=== PATIENT | male | born 1950 | race Caucasian/White ===

== ENCOUNTER 2017-04-28 16:05 | Inpatient (IN) | payer MEDICARE, OTHER ==
[~2017-04-28] VITALS: Ht 188 cm; Wt 106.5 kg
[~2017-04-28 16:05] MED LIST: ALFU1TAB10 PO; GLUCTAB PO; IBUP-232 PO; LORTA5
[2017-04-28 16:35] VITALS: BP 148/82; PULSE 67; RESP 17; TEMP 97.7; O2SAT 98
[2017-04-28] MEDS ORDERED: SODIUM CHLORIDE 0.9% FLUSH 10 ML FLUSH IVF PRN (16:45)
[2017-04-28 17:01] VITALS: BP 131/69; PULSE 67; RESP 20; O2SAT 96
[2017-04-28 17:02] VITALS: BP 138/71; PULSE 69; RESP 18; O2SAT 96
[2017-04-28] MEDS ORDERED: METF850T PO (17:07)
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
[2017-04-28 17:28] LABS: AUTOMATED NEUTROPHIL # 4.6 TH/MM3 (1.8-7.7); BASOPHIL % 0.5 % (0.0-2.0); EOSINOPHIL # 0.3 TH/MM3 (0-0.4); EOSINOPHIL % 4.3 % (0.0-4.0); HEMATOCRIT 46.5 % (39.0-51.0); HEMO FLAGS DIFF FINAL; LYMPH % 24.5 % (9.0-44.0); LYMPHOCYTE # 1.9 TH/MM3 (1.0-4.8); MEAN CELL VOLUME 91.8 FL (80.0-100.0); MEAN CORPUSCULAR HEMOGLOBIN 31.4 PG (27.0-34.0); MEAN CORPUSCULAR HGB CONC 34.2 % (32.0-36.0); MONO % 9.7 % (0.0-8.0); PLATELET COUNT 179 TH/MM3 (150-450); RED BLOOD COUNT 5.06 MIL/MM3 (4.50-5.90); RED CELL DISTRIBUTION WIDTH 13.8 % (11.6-17.2); WHITE BLOOD COUNT 7.6 TH/MM3 (4.0-11.0)
[2017-04-28 17:31] LABS: APTT (PATIENT) 26.4 SEC (24.3-30.1); PROTHROMBIN TIME - PATIENT 11.4 SEC (9.8-11.6)
[2017-04-28 17:41] LABS: ANION GAP 6 MEQ/L (5-15); BICARBONATE 29.7 MEQ/L (21.0-32.0); BLOOD UREA NITROGEN 20 MG/DL (7-18); CHLORIDE 102 MEQ/L (98-107); GLOMERULAR FILTRATION RATE 54 ML/MIN (>89); MAGNESIUM 2.1 MG/DL (1.5-2.5); POTASSIUM 4.2 MEQ/L (3.5-5.1); SODIUM (NA) 138 MEQ/L (136-145)
[2017-04-28 17:44] LABS: CREATINE KINASE 140 U/L (39-308)
[2017-04-28 18:03] LABS: CKMB 6.6 NG/ML (0.5-3.6)
--- NOTE | 2017-04-28 18:44 | RADRPT ---
EXAM DATE/TIME: 04/28/2017 16:42 [facility] COMPARISON: No previous studies available for comparison. INDICATIONS : Chest pain. MEDICAL HISTORY : None. SURGICAL HISTORY : None. ENCOUNTER: Initial ACUITY: 1 day PAIN SCORE: 10/10 LOCATION: Bilateral chest FINDINGS: A single view of the chest demonstrates the lungs to be symmetrically aerated without evidence of mas s, infiltrate or effusion. Calcified granuloma is evident in the left mid lung. The cardiomediastina l contours are unremarkable. Osseous structures are intact. CONCLUSION: No acute disease. Calcified granuloma left midlung. Paresh Soares MD on April 28, 2017 at 18:42 Board Certified Radiologist. This report was verified electronically.
[2017-04-28] MEDS ORDERED: oxyCODONE/ACETAMINOPHEN 10 MG/325 MG TAB PO PRN (18:45)
[2017-04-28] MEDS ORDERED: NITROGLYCERIN 0.4 MG SL 25 TABS/BTL SL PRN (18:45)
[2017-04-28] MEDS ORDERED: GLUCAGON 1 MG/ML VIAL OTHER PRN (18:45)
[2017-04-28] MEDS ORDERED: ACETAMINOPHEN 325 MG TAB PO PRN (18:45)
[2017-04-28] MEDS ORDERED: ALPRAZolam 0.25 MG TAB PO PRN (18:45)
[2017-04-28] MEDS ORDERED: BISACODYL 10 MG SUPP RECTAL PRN (18:45)
[2017-04-28] MEDS ORDERED: ONDANSETRON HCL 4 MG/2 ML VIAL IV PRN (18:45)
[2017-04-28] MEDS ORDERED: SODIUM CHLORIDE 0.9% FLUSH 10 ML FLUSH IV FLUSH PRN ×2 (18:45)
[2017-04-28] MEDS ORDERED: DOCUSATE SODIUM 100 MG CAP PO PRN (18:45)
[2017-04-28] MEDS ORDERED: DEXTROSE 50% IN WATER 50 ML VIAL(D50) IV PRN (18:45)
[2017-04-28] MEDS ORDERED: PROCHLORPERAZINE 25 MG SUPP RECTAL PRN (18:45)
[2017-04-28] MEDS ORDERED: MAGNESIUM HYDROXIDE SUSP 30 ML CUP PO PRN (18:45)
[2017-04-28] MEDS ORDERED: MORPHINE SULFATE 4 MG/ML INJ IV PRN ×3 (18:45)
[2017-04-28] MEDS ORDERED: LACTULOSE SYRUP 20 GM/30 ML CUP PO PRN (18:45)
[2017-04-28] MEDS ORDERED: SENNOSIDES 8.6 MG TAB PO PRN (18:45)
[2017-04-28] MEDS ORDERED: oxyCODONE/ACETAMINOPHEN 5 MG/325 MG TAB PO PRN (18:45)
[2017-04-28] MEDS ORDERED: ONDANSETRON HCL 4 MG/2 ML VIAL IVP PRN (18:45)
[2017-04-28] MEDS ORDERED: ZOLPIDEM TARTRATE 5 MG TAB PO PRN (18:45)
[2017-04-28] MEDS ORDERED: NALOXONE HCL 0.4 MG/ML AMP IV PRN (18:45)
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
[2017-04-28 19:57] VITALS: BP 141/77; PULSE 54; RESP 14; O2SAT 97
[2017-04-28] MEDS: HEPARIN-D5W 25,000 U/250 ML 250 ML IV SCH (20:02)
[2017-04-28] MEDS: NITROGLYCERIN 2% OINT 1 GM PACKET TOP SCH (20:11)
[2017-04-28 20:32] LABS: MEAN CORPUSCULAR HEMOGLOBIN 31.7 PG (27.0-34.0); MEAN CORPUSCULAR HGB CONC 34.4 % (32.0-36.0); PLATELET COUNT 170 TH/MM3 (150-450); RED BLOOD COUNT 4.89 MIL/MM3 (4.50-5.90); RED CELL DISTRIBUTION WIDTH 13.8 % (11.6-17.2); REVIEW FLAG FINAL; WHITE BLOOD COUNT 8.5 TH/MM3 (4.0-11.0)
[2017-04-28 20:34] LABS: PROTHROMBIN TIME - PATIENT 11.2 SEC (9.8-11.6)
[2017-04-28 20:40] LABS: CREATINE KINASE 184 U/L (39-308)
[2017-04-28] MEDS ORDERED: SODIUM CHLORIDE 0.9% FLUSH 10 ML FLUSH IV FLUSH SCH (21:00)
[2017-04-28] MEDS: SODIUM CHLORIDE 0.9% FLUSH 10 ML FLUSH IV FLUSH SCH (21:00)
[2017-04-28] MEDS: ATORVASTATIN 40 MG TAB PO SCH (21:00)
[2017-04-28] MEDS: METOPROLOL TARTRATE 25 MG TAB PO SCH (21:00)
[2017-04-28] MEDS: DOCUSATE SODIUM 50 MG/SENNA 8.6 MG TAB PO SCH (21:00)
[2017-04-28] MEDS: INSULIN ASPART SUPPLEMENTAL SCALE SQ SCH (21:00)
[2017-04-28 21:08] LABS: CKMB 11.8 NG/ML (0.5-3.6)
[2017-04-29] VITALS (17 sets, daily range): BP systolic 107–133; BP diastolic 64–83; PULSE 49–80; RESP 12–20; TEMP 97.7–98.6; O2SAT 94–98
[2017-04-29 01:32] LABS: CREATINE KINASE 259 U/L (39-308)
[2017-04-29 02:05] LABS: CKMB 24.9 NG/ML (0.5-3.6)
[2017-04-29 02:43] LABS: APTT (PATIENT) 83.9 SEC (24.3-30.1)
[2017-04-29] MEDS: NITROGLYCERIN 2% OINT 1 GM PACKET TOP SCH ×4 (05:12→21:50)
[2017-04-29] MEDS: INSULIN ASPART SUPPLEMENTAL SCALE SQ SCH ×3 (07:00→21:00)
[2017-04-29 08:16] LABS: ANION GAP 7 MEQ/L (5-15); AST (GOT) 65 U/L (15-37); BICARBONATE 28.1 MEQ/L (21.0-32.0); BLOOD UREA NITROGEN 20 MG/DL (7-18); CHLORIDE 103 MEQ/L (98-107); GLOMERULAR FILTRATION RATE 65 ML/MIN (>89); MAGNESIUM 2.1 MG/DL (1.5-2.5); POTASSIUM 4.2 MEQ/L (3.5-5.1); SODIUM (NA) 138 MEQ/L (136-145)
[2017-04-29 08:26] LABS: ALKALINE PHOSPHATASE 49 U/L (45-117); ALT (GPT) 55 U/L (12-78); CREATINE KINASE 274 U/L (39-308); FREE T4 0.91 NG/DL (0.76-1.46); HDL CHOLESTEROL 38.3 MG/DL (40.0-60.0); LDL CHOLESTEROL 75 MG/DL (0-99); TOTAL BILIRUBIN ADULT 1.5 MG/DL (0.2-1.0)
[2017-04-29 08:55] LABS: CKMB 24.1 NG/ML (0.5-3.6)
[2017-04-29] MEDS: DOCUSATE SODIUM 50 MG/SENNA 8.6 MG TAB PO SCH ×2 (09:00→21:00)
[2017-04-29] MEDS: METOPROLOL TARTRATE 25 MG TAB PO SCH ×2 (09:00→21:00)
[2017-04-29] MEDS: SODIUM CHLORIDE 0.9% FLUSH 10 ML FLUSH IV FLUSH SCH ×2 (09:00→21:51)
[2017-04-29] MEDS: ASPIRIN EC 325 MG TABEC PO SCH (09:34)
[2017-04-29 09:43] LABS: APTT (PATIENT) 29.9 SEC (24.3-30.1)
[2017-04-29 10:02] LABS: AUTOMATED NEUTROPHIL # 6.7 TH/MM3 (1.8-7.7); BASOPHIL % 0.4 % (0.0-2.0); EOSINOPHIL # 0.2 TH/MM3 (0-0.4); EOSINOPHIL % 2.3 % (0.0-4.0); HEMATOCRIT 42.7 % (39.0-51.0); HEMO FLAGS DIFF FINAL; LYMPH % 20.2 % (9.0-44.0); MEAN CELL VOLUME 91.6 FL (80.0-100.0); MEAN CORPUSCULAR HEMOGLOBIN 31.9 PG (27.0-34.0); MEAN CORPUSCULAR HGB CONC 34.8 % (32.0-36.0); MONO % 9.1 % (0.0-8.0); PLATELET COUNT 156 TH/MM3 (150-450); RED BLOOD COUNT 4.66 MIL/MM3 (4.50-5.90); RED CELL DISTRIBUTION WIDTH 13.9 % (11.6-17.2); WHITE BLOOD COUNT 9.9 TH/MM3 (4.0-11.0)
[2017-04-29] MEDS ORDERED: NITROGLYCERIN INJ 5 ML ONE (10:12)
[2017-04-29] MEDS ORDERED: HEPARIN-NS/PF INJ 500 ML ONE (10:12)
[2017-04-29] MEDS ORDERED: MIDAZOLAM HCL 2 MG/2 ML VIAL ONE (10:13)
[2017-04-29] MEDS ORDERED: HEPARIN SODIUM - IV 10,000 UNITS/10 ML VIAL ONE (10:13)
[2017-04-29] MEDS ORDERED: ATROPINE SULFATE 1 MG/ML VIAL IV PRN (11:00)
[2017-04-29] MEDS ORDERED: SODIUM CHLOR 0.9% 250 ML INJ 250 ML IV PRN (11:00)
[2017-04-29] MEDS ORDERED: MISC INFORMATION XX ONE ×2 (11:00)
[2017-04-29] MEDS ORDERED: BACITRACIN OINT 0.9 GM PKT TOP ONE (11:00)
[2017-04-29] MEDS ORDERED: LIDOCAINE HCL 1% 50 ML VIAL INFIL PRN (11:00)
--- NOTE | 2017-04-29 11:02 | CATHPROC ---
Occasion HIS Report Study Information Study Number Admission Scheduled Start Study Start [id number] Apr 28 2017 6:17PM 04/29/2017 Apr 29 2017 9:50AM [facility] Service Cardiac Catheterization Admit Source Facility Department Other [facility] - Heel Room Supervisor Physician and Clinical Staff Initial Leighton Ramos [place] Department Supervisor Brinda Hein,BSRN Other cathlab, cathlab Recorder Ladi Khan,INDUSTRIAL LOCOMOTIVE OPERATOR TECH2 Scrub Juve Hart RCIS(BS) Procedures Performed Procedure Location (Site) Vessel Name Angiogram LV LV Ventricle Coronary Angiograms LCA Left Coronary Coronary Angiograms RCA Right Coronary Coronary Angiograms ZAPATA ZAPATA L Heart Cath Wire insertion Fem Art (right) Femoral Art Equipment Time Warehouse Foreman Description Size Mfg Part Number Used/Scraped TRANSDUCER, TRUWAVE [id number] 09:52 MOBLEY METCALF * Used W/STOCKCOCK *[id number] *[id number] [id number] *[id number] [id number] *[id number] [id number] *[id number] [id number] *[id number] 09:52 [employer] PACK, CCL CUSTOM * Used *[id number] 09:52 [employer] SUPPORT, ARTERIAL ADULT [id number] Used [id number] 09:52 Social Pulse PACER PEN, SKIN DUAL W/ RULER * Used *[id number] BAND, RADIAL COMPRESSION TR [id number] 10:42 [employer] 29CM Used LARGE 29 *[id number] SHEATH, FR6 RADIAL PRELUDE 09:52 [employer] FR 6 [id number] Used EASE 11CM [id number] 09:52 [employer] WIRE, EXCHANGE 260CM 3MMJ 260CM Used *[id number] 09:52 [employer] OMNIPAQUE, 350 MG, 150ML 150ML [id number] Used 10:52 [employer] OMNIPAQUE, 350 MG, 50ML 50ML [id number] Used [id number] 09:52 [facility] BLANKET,WARM AIR CCL * Used *[id number] 10:44 [employer] MEDICAL SHEATH, FR5 TERUMO (10CM) FR 5 Used *[id number] History: Current Medications Medication Dosage/Unit Route Frequency Last Date/Time Taken Glucophage History: Allergies Allergy Reaction No Known Allergies History: Risk Factors Family History of Hypertension Dyslipidemia Previous GA Previous Heart Failure Premature CAD Yes No No Yes No Prior Valve Prior PCI Prior CABG Surgery No No No Cerebrovascular Peripheral Artery Chronic Lung On Dialysis Diabetes Diabetes Therapy Disease Disease Disease No No No No Yes Oral History: Other Disease Selection Items HTN Labs Hgb (g/dl) Hct (%) RBC (MIL/MM3) WBC (l/cumm) Platelets (thousands) 11.60-17.00 35.00-51.00 4.00-5.90 4.00-11.00 150.00-450.00 15.5 45 4.8 8.5 170 Glucose (mg/dl) BUN (mg/dl) Creatinine (mg/dl) BUN:Creatinine (1:x) 74.00-106.00 7.00-18.00 0.50-1.30 10.00-20.00 161 20 1.1 18.2 Na (meq/l) K (meq/l) Cl (meq/l) CO2 (mmol/L) Ca (mg/dl) 136.00-145.00 3.50-5.10 98.00-107.00 21.00-32.00 8.50-10.10 138 4.2 102 29.7 8.9 PT (sec) PTT (sec) INR (PTT:PT) 9.80-11.60 24.30-30.10 0.90-1.10 11.4 8.9 1 Troponin I (ng/ml) 0.02-0.05 6.4 Medication Medication Total Dose (Bolus/Oral) Medication Total Dosage/Unit 1% XYLOCAINE 20 mL FENTANYL 50 mcg VERSED 2 mg Medications (Bolus/Oral) Medication Time Given Dosage/Unit Administered By Reason VERSED 04/29/2017 10:31:12 AM 2 mg Brinda Hein 2 mg VERSED given in lab by Brinda Hein BSRN in Left Forearm via Peripheral IV. Ordered by Leighton West. FENTANYL 04/29/2017 10:32:35 AM 50 mcg Melvina, Brinda 50 mcg FENTANYL given in lab by Brinda Hein BSRN in Left Forearm via Peripheral IV. Ordered by Leighton Gray. 1% XYLOCAINE 04/29/2017 10:35:35 AM 10 mL Leighton Gray 10 mL 1% XYLOCAINE given in lab by Leighton Gray in Right Radial via Subcutaneous. Ordered by Leighton Gray. 1% XYLOCAINE 04/29/2017 10:41:54 AM 10 mL Leighton Gray 10 mL 1% XYLOCAINE given in lab by Leighton Gray in Right Groin via Subcutaneous. Ordered by Leighton Gray. Medication (Drip) Medication Time Given Dosage/Unit Concentration/Unit Diluent (ml) Solution IV Solutions 04/29/2017 10:16:57 AM 0 mL (IV) 1000 NaCl .9 Patient arrived on IV Solutions given by Brinda Hein BSRN in Left Forearm via Peripheral IV. Pu mp/Drip Flow = 20 ml/hr using NaCl .9. Initial Case Assessment Cardiovascular HR NIBP 54 128/74 Edema Present Skin color Skin None Normal Warm Dry Circulatory - Right Pulses Dorsalis Pedis Femoral 3 2 Scale (0,1,2,3,4,d) Circulatory - Left Pulses Dorsalis Pedis Femoral 3 Scale (0,1,2,3,4,d) Respiration - General Respiration Rate SpO2 (%) (B/min) 19 97 Final Case Assessment Cardiovascular HR NIBP 62 120/74 Edema Present Skin color Skin None Normal Warm Dry Circulatory - Right Pulses Dorsalis Pedis Femoral 3 2 Scale (0,1,2,3,4,d) Circulatory - Left Pulses Dorsalis Pedis Femoral 3 Scale (0,1,2,3,4,d) Respiration - General Respiration Rate SpO2 (%) (B/min) 14 95 Chronological Log Time Study Chronological Log 10:08:39 Patient arrived via Bed. 10:08:40 Patient Name, D.O.B, / Armband Verified By R.N. 10:08:41 Consent signed by the physician and the patient and verified by the Heel Room Supervisor staff. 10:08:41 Pre-op and post- op instructions given; patient acknowledges understanding of instructions. 10:08:43 Patient has been NPO for More than 6Hrs. 10:15:00 NITRO PATCH REMOVED 10:15:01 HEPARIN DRIP DISCONTINUED 09 10:16:41 Patient Warmer Placed on the Table. 10:16:46 A # 20 IV was noted in the Forearm (left). Grade = 0 Patient arrived on IV Solutions given by Brinda Hein BSRN in Left Forearm via Peripheral IV. Pump/Drip Flow = 10:16:57 20 ml/hr using NaCl .9. Vitals capture started with the following parameters, Patient=Adult, Interval=5 min, Initial Pr dlvdrq=372 mmHg, 10:17:29 Deflation Rate=5 mmHg 10:18:10 HR=54 bpm, MFYR=298/74 mmhg, SpO2=97.0 %, Resp=19 B/min, Tab=10, Wetzel=2 10:18:34 Reference ECG taken Assessment: Initial Case, HR=54 BPM, MXDV=645/74 mmhg, Edema=None, Color=Normal, Skin = Warm, D ry Right Pulses: Cj Ped=3, Femoral=2 10:18:52 Left Pulses: Cj Ped=3 Respiration: Resp=19 B/min, SpO2=97 % 10:20:01 HR=55 bpm, STRX=121/78 mmhg, SpO2=98 %, Resp=18 B/min, Tab=10, Wetzel=2 10:22:04 HR=56 bpm, QYEV=222/79 mmhg, SpO2=96.0 %, Resp=15 B/min, Tab=10, Wetzel=2 10:24:05 HR=56 bpm, VKWA=610/73 mmhg, SpO2=93.0 %, Resp=15 B/min, Tab=10, Wetzel=2 10:25:54 Right groin and right radial prepped with 2% chlorhexidine, and with a 3 min. waiting time. 10:26:03 HR=57 bpm, OBXP=789/78 mmhg, SpO2=96.0 %, Resp=15 B/min, Tab=10, Wetzel=2 10:28:06 HR=56 bpm, LBOE=290/76 mmhg, SpO2=99.0 %, Resp=14 B/min, Tab=10, Wetzel=2 10:30:05 HR=58 bpm, HQLH=668/78 mmhg, SpO2=97.0 %, Resp=15 B/min, Tab=10, Wetzel=2 10:31:12 2 mg VERSED given in lab by Brinda Hein BSRN in Left Forearm via Peripheral IV. Order ed by Leighton Gray. 10:31:57 Pressure channel 1 zeroed. 10:32:04 HR=55 bpm, MQGM=727/78 mmhg, SpO2=96.0 %, Resp=12 B/min, Tab=10, Wetzel=2 50 mcg FENTANYL given in lab by Brinda Hein BSRN in Left Forearm via Peripheral IV. Order ed by Isaac, 10:32:35 Leighton. 10:34:05 HR=68 bpm, TZIN=661/86 mmhg, SpO2=94 %, Resp=15 B/min, Tab=10, Wetzel=2 Time Out. Correct patient, correct procedure,correct physician, power injector loaded with cont rast with surgical team 10:35:07 present. Time Out Concurred by MD, individual staff in procedure 10:35:34 Case Start 10:35:35 10 mL 1% XYLOCAINE given in lab by Leighton Gray in Right Radial via Subcutaneous. Ordered by Leighton Gray. 10:36:06 Access site was Radial Artery. 10:36:08 HR=67 bpm, SNZJ=063/82 mmhg, SpO2=92 %, Resp=16 B/min, Tab=10, Wetzel=2 A SHEATH, FR6 RADIAL PRELUDE EASE 11CM FR 6 was advanced into the Radial (right) using the Heraclio fied Seldinger 10:36:35 technique. 10:38:06 HR=64 bpm, LHCX=091/78 mmhg, SpO2=95 %, Resp=17 B/min, Tab=10, Wetzel=2 10:40:07 HR=63 bpm, IGJT=118/71 mmhg, Resp=14 B/min, Tab=10, Wetzel=2 Radial Compression Device Used. 15 mLs of air placed in BAND, RADIAL COMPRESSION TR LARGE 29 29 CM. Affected 10:41:17 hand 96 % O2 saturation. 10:41:54 10 mL 1% XYLOCAINE given in lab by Leighton Gray in Right Groin via Subcutaneous. Ordered by Leighton Gray. 10:42:08 HR=57 bpm, REDH=444/68 mmhg, SpO2=96.0 %, Resp=15 B/min, Tab=10, Wetzel=2 10:42:24 Access site was Right Femoral Artery. 10:42:39 A WIRE, EXCHANGE 260CM 3MMJ 260CM was inserted via Fem Art (right). 10:42:44 A SHEATH, FR5 TERUMO (10CM) FR 5 was advanced into the Fem Art (right) using the Modified S eldinger technique. A JL 4.0 INFINITI CATHETER FR 5 was advanced over a wire. OMNIPAQUE, 350 MG, 150ML 150ML was us ed for 10:43:20 injections. 10:44:07 HR=58 bpm, UFSI=058/72 mmhg, SpO2=93.0 %, Resp=17 B/min, Tab=10, Wetzel=2 10:45:19 Pressure channel 1 zeroed. 10:45:44 The LCA was injected and visualized at various angles. OMNIPAQUE, 350 MG, 150ML 150ML used . Recorded Pressure: Ao, HR=56, Condition=Condition 1 10:45:54 (Aorta) Ao 112/62/81 10:46:08 HR=58 bpm, OGMS=490/69 mmhg, SpO2=94.0 %, Resp=17 B/min, Tab=10, Wetzel=2 After removing the current catheter a JR 4.0 INFINITI CATHETER FR 5 was advanced over a WIRE, E XCHANGE 260CM 10:47:33 3MMJ 260CM. 10:48:09 HR=58 bpm, JKYR=480/69 mmhg, SpO2=92.0 %, Resp=16 B/min, Tab=10, Wetzel=2 10:48:25 The RCA was injected and visualized at various angles. OMNIPAQUE, 350 MG, 150ML 150ML used . 10:49:00 The ZAPATA was injected and visualized at various angles. OMNIPAQUE, 350 MG, 150ML 150ML used . After removing the current catheter a PIGTAIL ANG. INFINITI CATHETER FR 5 was advanced over a W BLAKE, EXCHANGE 10:49:27 260CM 3MMJ 260CM. 10:50:09 HR=56 bpm, SNOW=241/69 mmhg, SpO2=95.0 %, Resp=15 B/min Recorded Pressure: LV, HR=63, Condition=Condition 1 10:50:30 (Left Ventricle) LV 110/11/16 10:51:08 The LV was injected at 10 cc/sec for a total of 30. OMNIPAQUE, 350 MG, 50ML 50ML used. Recorded Pressure: LV, Ao, HR=60, Condition=Condition 1 10:51:33 (Left Ventricle) LV 106/15/15, (Aorta) Ao 102/56/75 10:52:03 A WIRE, EXCHANGE 260CM 3MMJ 260CM was inserted via Fem Art (right). 10:52:10 HR=57 bpm, JURS=180/72 mmhg, SpO2=93 %, Resp=16 B/min, Tab=10, Wetzel=2 10:52:11 Catheter was removed 10:52:30 Case End 10:54:09 HR=62 bpm, AHRD=135/74 mmhg, SpO2=95.0 %, Resp=14 B/min, Tab=10, Wetzel=2 10:56:24 Vitals capture stopped. Assessment: Final Case, HR=62 BPM, KMSC=076/74 mmhg, Edema=None, Color=Normal, Skin = Warm, Dry Right Pulses: Cj Ped=3, Femoral=2 10:56:52 Left Pulses: Cj Ped=3 Respiration: Resp=14 B/min, SpO2=95 % 11:01:09 Catheter(s) removed without difficulty 11:01:12 Sheath(s) left in place, will be removed in Holding Area 11:01:13 Sterile dressing applied to site 11:01:14 No case complications noted. 11:01:16 Cine recording checked. 11:01:18 Bedside Report will be given. 11:01:21 A Left Heart Cath was performed. 11:01:24 Patient moved to [facility] End Study - Contrast Media Used In Study Contrast Total Opened (mL) Total Used (mL) Total Wasted (mL) Omnipaque 110 110 0 End Study - Maximum Contrast Load Max Contrast Load (mL) 472.7 End Study - Radiation Exposure Fluoro Time (minutes) 1.8 End Study - Patient Disposition Complications Transferred To Telemetry Bed
[2017-04-29] MEDS ORDERED: IOHEXOL 350 MG/ML 100 ML BTL (for Cath Lab) OTHER ONE (11:50)
[2017-04-29] MEDS ORDERED: IOHEXOL 350 MG/ML 50 ML BTL (for Cath Lab) OTHER ONE (11:50)
--- NOTE | 2017-04-29 15:02 | EKG ---
Date Performed: 04/29/2017 Time Performed: 06:39:59 PTAGE: 66 years EKG: SINUS BRADYCARDIA NONSPECIFIC T-WAVE ABNORMALITY BORDERLINE ECG PREVIOUS TRACING : 04/29/2017 00.30 DOCTOR: Will Anaya Interpretating Date/Time 04/29/2017 14:56:31
[2017-04-29] MEDS ORDERED: CEFAZOLIN INJ 500 MG in SODIUM CHLORIDE 0.9% IRR BTL 500 ML IRRIGATION SCH (15:30)
[2017-04-29] MEDS ORDERED: SODIUM CHLORIDE 0.9% FLUSH 10 ML FLUSH IV FLUSH PRN (15:30)
[2017-04-29] MEDS ORDERED: ceFAZolin 2 GM PREMIX 50 ML IV SCH (15:30)
[2017-04-29] MEDS ORDERED: PAPAVERINE INJ 60 MG, NITROGLYCERIN INJ 100 MCG, DILTIAZEM INJ 100 MG in SODIUM CHLORID... IRRIGATION SCH (15:30)
[2017-04-29] MEDS ORDERED: METOPROLOL TARTRATE 25 MG TAB PO SCH (15:30)
[2017-04-29] MEDS ORDERED: INSULIN REGULAR (IV INFUSION) 100 UNITS in SODIUM CHLORIDE 0.9% INJ 100 ML IV SCH (15:30)
[2017-04-29] MEDS ORDERED: CHLORHEXIDINE GLUCONATE 4% SOLN 120 ML BTL TOPICAL SCH (15:30)
--- NOTE | 2017-04-29 15:34 | EKG ---
Date Performed: 04/29/2017 Time Performed: 00:30:01 PTAGE: 66 years EKG: SINUS BRADYCARDIA NONSPECIFIC T-WAVE ABNORMALITY BORDERLINE ECG PREVIOUS TRACING : 04/28/2017 16.36 DOCTOR: Will Anaya Interpretating Date/Time 04/29/2017 15:32:55
--- NOTE | 2017-04-29 15:46 | EKG ---
Date Performed: 04/28/2017 Time Performed: 16:36:49 PTAGE: 66 years EKG: Sinus rhythm NONSPECIFIC T-WAVE ABNORMALITY BORDERLINE ECG NO PREVIOUS TRACING DOCTOR: Will Anaya Interpretating Date/Time 04/29/2017 15:41:39
--- NOTE | 2017-04-29 15:58 | HHI.PR ---
Subjective Remarks Follow-up for NSTEMI Patient denies any chest pain, shortness of breathing, palpitation. He just got back from cart catheterization. He had no complaints. Objective Vitals Vital Signs Date Time Temp Pulse Resp B/P Pulse Ox O2 Delivery O2 Flow Rate FiO2 04/29/17 15:28 59 04/29/17 15:28 94 Room Air 04/29/17 15:28 98.2 59 18 107/65 94 04/29/17 14:49 59 04/29/17 13:12 66 04/29/17 12:46 97.7 57 18 130/74 97 04/29/17 12:46 59 04/29/17 11:39 100 Room Air 04/29/17 09:38 98 04/29/17 08:18 56 20 131/83 98 04/29/17 04:28 53 12 133/73 04/29/17 00:03 49 14 126/68 96 Room Air 04/28/17 19:57 54 14 141/77 97 Room Air 04/28/17 17:02 69 18 138/71 96 Room Air 04/28/17 17:01 67 20 131/69 96 Room Air 04/28/17 16:48 66 96 Room Air 04/28/17 16:35 97.7 67 17 148/82 98 Result Diagram: 04/29/17 0847 04/29/17 0630 Objective Remarks GENERAL: in NAD CARDIOVASCULAR: Regular rate and rhythm without murmurs, gallops, or rubs. RESPIRATORY: Breath sounds equal bilaterally. No accessory muscle use. GASTROINTESTINAL: Abdomen soft, non-tender, nondistended. Medications and IVs Current Medications Sodium Chloride (NS Flush) 2 ml UNSCH PRN IVF FLUSH AFTER USING IV ACCESS; Start 04/28/17 at 16:45; Stop 04/28/17 at 19:22; Status DC Dextrose (D50w (Vial) Inj) 50 ml UNSCH PRN IV HYPOGLYCEMIA-SEE COMMENTS; Start 04/28/17 at 18:45 Glucagon (Glucagon Inj) 1 mg UNSCH PRN OTHER HYPOGLYCEMIA-SEE COMMENTS; Start 04/28/17 at 18:45 Insulin Aspart (NovoLOG SUPPLEMENTAL SCALE) 1 ACHS SLIDING SCALE SQ ; Start 04/28/17 at 21:00 Sodium Chloride (NS Flush) 2 ml BID IV FLUSH Last administered on 04/28/17t 21: 00; Start 04/28/17 at 21:00; Stop 04/29/17 at 15:40; Status DC Sodium Chloride (NS Flush) 2 ml UNSCH PRN IV FLUSH FLUSH AFTER USING IV ACCESS ; Start 04/28/17 at 18:45; Stop 04/29/17 at 15:40; Status DC Aspirin (Ecotrin Ec) 325 mg DAILY PO Last administered on 04/29/17 09:34; Start 04/29/17 at 09:00 Nitroglycerin (Nitroglycerin 2% Oint) 1 inch Q6H TOP Last administered on 08:19; Start 04/28/17 at 20:00 Nitroglycerin (Nitrostat Sl) 0.4 mg Q5M PRN SL CHEST PAIN; Start 04/28/17 at 18: 45 Morphine Sulfate (Morphine Inj) 2 mg Q30M PRN IV CHEST PAIN; Start 04/28/17 at 18:45 Acetaminophen (Tylenol) 650 mg Q6H PRN PO HEADACHE OR TEMP > 101 F Last administered on 04/28/17 20:20; Start 04/28/17 at 18:45 Docusate Sodium (Colace) 100 mg BID PRN PO CONSTIPATION; Start 04/28/17 at 18:45 Alprazolam (Xanax) 0.25 mg Q8H PRN PO ANXIETY; Start 04/28/17 at 18:45 Ondansetron HCl (Zofran Inj) 4 mg Q6H PRN IV NAUSEA OR VOMITING; Start 04/28/17 at 18:45 Metoprolol Tartrate (Lopressor) 12.5 mg BID PO ; Start 04/28/17 at 21:00 Atorvastatin Calcium 40 mg 40 mg HS PO ; Start 04/28/17 at 21:00 Heparin Sodium/ Dextrose (Heparin-D5W Inj) 250 ml @ 0 mls/hr TITRATE IV Last administered on 04/28/17 20:02; Start 04/28/17 at 18:45 Sodium Chloride (NS Flush) 2 ml UNSCH PRN IV FLUSH FLUSH AFTER USING IV ACCESS ; Start 04/28/17 at 18:45; Status UNV Sodium Chloride (NS Flush) 2 ml BID IV FLUSH ; Start 04/28/17 at 21:00; Status UNV Ondansetron HCl (Zofran Inj) 4 mg Q6H PRN IVP NAUSEA OR VOMITING; Start at 18:45; Status UNV Prochlorperazine (Compazine Supp) 25 mg Q12H PRN RECTAL NAUSEA OR VOMITING; Start 04/28/17 at 18:45 Zolpidem Tartrate (Ambien) 5 mg HS PRN PO INSOMNIA; Start 04/28/17 at 18:45 Oxycodone/ Acetaminophen (Percocet 5-325 Mg) 1 tab Q6H PRN PO PAIN SCALE 3 TO 5; Start 04/28/17 at 18:45 Oxycodone/ Acetaminophen (Percocet 10-325 Mg) 1 tab Q6H PRN PO PAIN SCALE 6 TO 10; Start 04/28/17 at 18:45 Morphine Sulfate (Morphine Inj) 2 mg Q3H PRN IV Pain 3-5; if unable to take PO ; Start 04/28/17 at 18:45 Morphine Sulfate (Morphine Inj) 4 mg Q3H PRN IV Pain 6-10;if unable to take PO ; Start 04/28/17 at 18:45 Naloxone HCl (Narcan Inj) 0.4 mg UNSCH PRN IV SEE LABEL COMMENTS; Start at 18:45 Senna/Docusate Sodium (Nancie-Colace) 1 tab BID PO ; Start 04/28/17 at 21:00 Magnesium Hydroxide (Milk Of Magnesia Liq) 30 ml Q12H PRN PO MILD - MODERATE CONSTIPATION; Start 04/28/17 at 18:45 Sennosides (Senokot) 17.2 mg Q12H PRN PO MODERATE - SEVERE CONSTIPATION; Start 04/28/17 at 18:45 Bisacodyl (Dulcolax Supp) 10 mg DAILY PRN RECTAL SEVERE CONSITIPATION; Start at 18:45 Lactulose 30 ml 30 ml DAILY PRN PO SEVERE CONSITIPATION; Start 04/28/17 at 18:45 Heparin Sodium/ Sodium Chloride 500 ml @ As Directed STK-MED ONCE .ROUTE Last administered on 04/29/17t 10:12; Start 04/29/17 at 10:12; Stop 04/29/17 at 10:13; Status DC Nitroglycerin (Nitroglycerin Inj) 5 ml @ As Directed STK-MED ONCE .ROUTE ; Start 04/29/17 at 10:12; Stop 04/29/17 at 10:13; Status DC Heparin Sodium (Porcine) (Heparin Inj) 10,000 units STK-MED ONCE .ROUTE ; Start 04/29/17 at 10:13; Stop 04/29/17 at 10:14; Status DC Midazolam HCl (Versed Inj) 2 mg STK-MED ONCE .ROUTE Last administered on 10:31; Start 04/29/17 at 10:13; Stop 04/29/17 at 10:14; Status DC Fentanyl Citrate (fentaNYL INJ) 100 mcg STK-MED ONCE .ROUTE Last administered on 04/29/17 10:32; Start 04/29/17 at 10:14; Stop 04/29/17 at 10:15; Status DC Miscellaneous Information 1 ONCE ONCE XX ; Start 04/29/17 at 11:00; Stop at 11:10; Status DC Bacitracin (Bacitracin Oint Packet) 0.9 gm ONCE ONCE TOP ; Start 04/29/17 at 11: 00; Stop 04/29/17 at 11:09; Status DC Miscellaneous Information 1 ONCE ONCE XX ; Start 04/29/17 at 11:00; Stop at 11:10; Status DC Atropine Sulfate 0.5 mg 0.5 mg UNSCH PRN IV VAGAL REPONSE; Start 04/29/17 at 11: 00 Sodium Chloride (NS 250 ml Inj) 250 ml @ 500 mls/hr ONCE PRN IV VAGAL REPONSE ; Start 04/29/17 at 11:00; Stop 04/30/17 at 10:59 Lidocaine HCl (Xylocaine 1% Inj (50 ml)) 10 ml UNSCH PRN INFIL SHEATH REMOVAL; Start 04/29/17 at 11:00; Stop 04/30/17 at 10:59 Iohexol (OMNIPAQUE 350 INJ (Metal Molder)) 100 ml STK-MED ONCE OTHER ; Start at 11:50; Stop 04/29/17 at 11:51; Status DC Iohexol (OMNIPAQUE 350 INJ (Metal Molder)) 50 ml STK-MED ONCE OTHER ; Start 04/29/17 at 11:50; Stop 04/29/17 at 11:51; Status DC Sodium Chloride (NS Flush) 2 ml BID IV FLUSH ; Start 04/29/17 at 21:00 Sodium Chloride 2 ml 2 ml UNSCH PRN IV FLUSH FLUSH AFTER USING IV ACCESS; Start 04/29/17 at 15:30 Papaverine HCl 60 mg/Nitroglycerin 100 mcg/Diltiazem HCl 100 mg/Sodium Chloride 100.0 ml @ 0 mls/hr HEAD TURNING MACHINE OPERATOR IRRIGATION ; Start 04/29/17 at 15:30; Stop at 15:29 Cefazolin Sodium 500 mg/Sodium Chloride 505 ml @ 0 mls/hr HEAD TURNING MACHINE OPERATOR IRRIGATION ; Start 04/29/17 at 15:30; Stop 05/06/17 at 15:29 Cefazolin Sodium/ Dextrose (Ancef 2 Gm Premix) 50 ml @ 100 mls/hr HEAD TURNING MACHINE OPERATOR IV ; Start 04/29/17 at 15:30; Stop 05/06/17 at 15:29 Metoprolol Tartrate (Lopressor) 12.5 mg HEAD TURNING MACHINE OPERATOR PO ; Start 04/29/17 at 15:30; Stop 05/06/17 at 15:29 Chlorhexidine Gluconate 1 applic 1 applic HEAD TURNING MACHINE OPERATOR TOPICAL ; Start 04/29/17 at 15 :30; Stop 05/06/17 at 15:29 Insulin Human Regular/Sodium Chloride (NovoLIN R (IV INFUSION)/NS Inj) 101 ml @ 0 mls/hr HEAD TURNING MACHINE OPERATOR IV ; Start 04/29/17 at 15:30; Stop 05/06/17 at 15:29 A/P Problem List: (1) Diabetes mellitus ICD Code: E11.9 Status: Chronic (2) Chronic kidney disease ICD Code: N18.9 Status: Chronic (3) Non-ST elevation myocardial infarction (NSTEMI) ICD Code: I21.4 Status: Acute Assessment and Plan NSTEMI -Cardiac catheterization today by Dr. her showed multivessel disease. Recommend CABG. -Cardiovascular surgeon consulted. -At the moment he is asymptomatic. Continue her current regimen. Renal insufficiency -Most likely secondary to hypoperfusion due to NSTEMI. -Improving. Continue to monitor. Avoid nephrotoxins. Diabetes mellitus -Pending hemoglobin A1c. -Metformin held. Continue with insulin sliding scale. Hyperlipidemia -LDL 75. Continue with statin. Discharge Planning Container Washer Machine recommends CABG. Daisha Traylor MD Apr 29, 2017 15:58
[2017-04-29 16:59] LABS: HEMOGLOBIN A1b 1.8 %; HEMOGLOBIN Ao 83.5 %; HEMOGLOBIN LA1C 2.4 %; HEMOGLOBIN P3 4.2 %
--- NOTE | 2017-04-29 17:00 | ECHRPT ---
Indication: CHEST PAIN CONCLUSIONS Moderately to severly dilated left ventricle. Wall thickness is normal. The left ventricular systolic function is severely reduced with an estimated ejection fraction in th e range of 25-30%. There is diffuse global hypokinesis with distinct regional wall motion abnormalities. Doppler parameters are consistent with impaired left ventricular relaxtion (grade 1 diastolic dysfun ction). The right ventricle is mildly dilated. The right ventricular systoilc function is mildly decreased. The left atrial size is [id number] dilated. Mild mitral valve regurgitation. Aortic valve sclerosis is present. No aortic valve stenosis. There is mild tricuspid valve regurgitation. Normal estimated pulmonary pressures. The pulmonary valve is not well visualized. The inferior vena cava is dilated. There is less than 50% respiratory change in dimension of the inferior vena cava (abnormal). BP: 131 / 83 HR: 56 Rhythm: Sinus MEASUREMENTS (Male / Female) Normal Values Technical Quality:Poor 2D ECHO LV Diastolic Diameter PLAX 7.2 cm 4.2 - 5.9 / 3.9 - 5.3 cm LV Systolic Diameter PLAX 6.2 cm IVS Diastolic Thickness 0.9 cm 0.6 - 1.0 / 0.6 - 0.9 cm LVPW Diastolic Thickness 0.9 cm 0.6 - 1.0 / 0.6 - 0.9 cm LV Relative Wall Thickness 0.2 LVOT Diameter 2.2 cm Aortic Root Diameter 3.2 cm LA Systolic Diameter LX 3.7 cm 3.0 - 4.0 / 2.7 - 3.8 cm M-MODE AV Cusp Separation MM 1.8 cm DOPPLER AV Peak Velocity 156.0 cm/s AV Peak Gradient 9.7 mmHg AV Mean Gradient 5.0 mmHg AV Velocity Time Integral 29.2 cm LVOT Peak Velocity 73.7 cm/s LVOT Peak Gradient 2.2 mmHg LVOT Velocity Time Integral 14.7 cm LVOT Cardiac Index 1332.2 cm/minm AV Area Cont Eq vti 1.9 cm AV Area Cont Eq pk 1.8 cm Mitral E Point Velocity 66.6 cm/s Mitral A Point Velocity 79.5 cm/s Mitral E to A Ratio 0.8 LV E' Lateral Velocity 10.1 cm/s Mitral E to LV E' Lateral Ratio 6.6 LV E' Septal Velocity 6.8 cm/s Mitral E to LV E' Septal Ratio 9.8 TR Peak Velocity 220.0 cm/s TR Peak Gradient 19.4 mmHg PV Peak Velocity 60.2 cm/s PV Peak Gradient 1.4 mmHg FINDINGS LEFT VENTRICLE Moderately to severly dilated left ventricle. Wall thickness is normal. The left ventricular systolic function is severely reduced with an estimated ejection fraction in th e range of 25-30%. There is diffuse global hypokinesis with distinct regional wall motion abnormalities. Doppler parameters are consistent with impaired left ventricular relaxtion (grade 1 diastolic dysfun ction). RIGHT VENTRICLE The right ventricle is mildly dilated. The right ventricular systoilc function is mildly decreased. LEFT ATRIUM The left atrial size is [id number] dilated. RIGHT ATRIUM The right atrial size is normal. ATRIAL SEPTUM Normal atrial septal thickness without atrial level shunting by limited color doppler interrogation. AORTA The aortic root and proximal ascending aorta are normal in size on limited imaging. MITRAL VALVE Structurally normal mitral valve. Mild mitral valve regurgitation. AORTIC VALVE Trileaflet aortic valve. Aortic valve sclerosis is present. No aortic valve stenosis. TRICUSPID VALVE Structurally normal tricuspid valve. There is mild tricuspid valve regurgitation. Normal estimated pulmonary pressures. PULMONARY VALVE The pulmonary valve is not well visualized. VESSELS The inferior vena cava is dilated. There is less than 50% respiratory change in dimension of the inferior vena cava (abnormal). PERICARDIUM No pericardial effusion. Leighton Gray MD, FACC (Electronically Signed) Final Date:29 April 2017 16:58
--- NOTE | 2017-04-29 17:11 | MB ---
cc: MIGUEL HINSON DATE OF CONSULTATION 04/29/2017 INDICATION [id number] RI. HISTORY OF PRESENT ILLNESS A 66-year-old gentleman with diabetes with recent onset of chest pain over the course of the past month. Over the course of the past month he has had some intermittent chest pains, particularly with exertion associated with shortness of breath and nausea and radiates to the left arm. He came into the [facility] yesterday where he had a more persistent symptoms throughout the day. He was sent over from the [facility] to the emergency department here. He was given nitroglycerin with some relief in addition to aspirin. He had a troponin elevation and we were consulted for further recommendations. He has no prior history of known heart disease. PAST MEDICAL HISTORY 1. Diabetes. 2. Histoplasmosis. MEDICATIONS Metformin. ALLERGIES NO KNOWN DRUG ALLERGIES. REVIEW OF SYSTEMS 12-point review of symptoms was performed and negative unless otherwise noted in the history of present illness. SOCIAL HISTORY Denies alcohol, tobacco or drug use. FAMILY HISTORY Denies any family history of early coronary sudden or cardiac . PHYSICAL EXAMINATION VITAL SIGNS: Temperature is normal. Heart rate 56, blood pressure 131/83 mmHg. GENERAL: Alert and oriented times three in no acute distress. HEENT: Examination shows pupils reactive to light and accommodation. Extraocular movements are intact. NECK: No elevation or jugular venous distention. No thyromegaly. No lymphadenopathy. No carotid bruits. LUNGS: Clear to auscultation bilaterally. CARDIOVASCULAR: Regular rate and rhythm without murmurs, rubs, or gallops. ABDOMEN: Nontender, nondistended. Good bowel sounds. No hepatosplenomegaly. EXTREMITIES: Show no clubbing, cyanosis, or edema. Good peripheral pulses. NEUROLOGICAL: Cranial nerves intact. Motor strengths are grossly intact. LABORATORY DATA WBC 8.5, hemoglobin is 15.5, platelet count 170. INR is 1.0. Sodium 138, potassium 4.2, chloride is 103, BUN is 20, creatinine 1.12. Troponins up to 6.47. ASSESSMENT 1. [id number] myocardial infarction. 2. Diabetes. 3. Bradycardia. PLAN The patient has suggestive symptoms, cardiovascular risk factors in addition to elevated troponin. I discussed risks, benefits and alternatives of proceeding forward with cardiac catheterization. He is agreeable. We will hold heparin drip for now in anticipation of taking him to the catheterization lab. We will have to get gentle hydration for his kidneys and we will get a 2-D echocardiogram to evaluate ejection fraction. MD PRESTON Perez/DIANA /9:48 AM /4:58 PM
--- NOTE | 2017-04-29 17:45 | MA ---
cc: MIGUEL HINSON DATE 04/29/2017 INDICATION [id number] FL. PROCEDURES PERFORMED 1. Fluoroscopy with interpretation. 2. Left heart catheterization. 3. Left ventriculography. 4. Coronary angiography. METHOD Risks, benefits and alternatives discussed with the patient. The patient understood and consented to the procedure. PROCEDURE The patient brought to the catheterization lab and placed on the catheterization table. Right wrist and right groin were prepped and draped in sterile fashion. Right wrist was anesthetized with 2% lidocaine. Right radial artery was cannulated. A 6-Kyrgyz 7 cm sheath was placed but unable to navigate the wire up the radial artery was subtotally occluded at the level of the brachial. Right common femoral artery was then cannulated and a 5-Kyrgyz 11 cm sheath was placed without difficulty. LEFT HEART CATHETERIZATION Intraventricular hemodynamics measured 106/15 mmHg. LEFT VENTRICULOGRAPHY The left ventriculography was performed in the right anterior oblique using a 5 Kyrgyz angled pigtail catheter. Left ventricle ejection fraction was 25% with global hypokinesis. 1+ mitral regurgitation noted. CORONARY ANGIOGRAPHY 1. Left main coronary had tapered distal segment 30% stenosis. 2. Left anterior descending coronary. In the mid segment just at the bifurcation of first diagonal branch there is a 90% discrete stenosis. Diagonal branch has 75% stenosis. Remainder of the left anterior descending coronary has mild luminal irregularities. 3. Left circumflex gives rise to a ramus intermedius branch with 70% stenosis. The ostial circumflex has an 80% discrete stenosis. The remainder of the vessel has minor luminal irregularities. 4. Right coronary is a dominant vessel giving rise to a posterior descending branch. Right coronary is occluded proximally and collateralized from [id number]. CONCLUSION 1. Severely reduced left ventricular systolic function. Ejection fraction 25%. 2. Severe [place] three-vessel coronary artery disease. PLAN We will consult cardiothoracic surgery for consideration of surgical revascularization. MD PRESTON Perez/DINAA /10:58 AM /5:18 PM
[2017-04-29] MEDS: ATORVASTATIN 40 MG TAB PO SCH (21:00)
--- NOTE | 2017-04-29 21:28 | RADRPT ---
EXAM DATE/TIME: 04/29/2017 19:42 [facility] COMPARISON: No previous studies available for comparison. INDICATIONS : Pre-op cardiac surgery. MEDICAL HISTORY : Chest pain. Hystoplasmosis. Dyspnea. Diabetes. NSTEMI. Chronic kidney disesase. SURGICAL HISTORY : Appendectomy.Cholecystectomy. Ulnar nerve surgery. Broken calcaneous. Cardiac cath. ENCOUNTER: Initial ACUITY: 1 day PAIN SCORE: 1/10 LOCATION: Bilateral legs. TECHNIQUE: Venous ultrasound of the left and right leg was performed from the inguinal ligament to the proximal calf. Real-time, color Doppler and spectral tracing, compression and augmentation techniques were us ed. FINDINGS: RIGHT LEG: There is normal compressibility of the deep venous system from the inguinal region to the proximal ca lf. No echogenic clot is seen in the lumen of the common femoral, femoral, popliteal, and posterior tibial veins. There is a normal response of the venous system to proximal and distal augmentation an d respiration. LEFT LEG: There is normal compressibility of the deep venous system from the inguinal region to the proximal ca lf. No echogenic clot is seen in the lumen of the common femoral, femoral, popliteal, and posterior tibial veins. There is a normal response of the venous system to proximal and distal augmentation an d respiration. CONCLUSION: Normal examination. Phil Trejo MD on April 29, 2017 at 21:26 Board Certified Radiologist. This report was verified electronically.
--- NOTE | 2017-04-29 21:44 | RADRPT ---
EXAM DATE/TIME: 04/29/2017 20:00 [facility] COMPARISON: No previous studies available for comparison. INDICATIONS : Pre-op cardiac surgery. MEDICAL HISTORY : Chest pain. Hystoplasmosis. Dyspnea. Diabetes. NSTEMI. Chronic kidney disesase. SURGICAL HISTORY : Appendectomy. Cholecystectomy. Ulnar nerve surgery. Broken calcaneous. Cardiac cath. ENCOUNTER: Initial ACUITY: 1 day PAIN SCORE: 1/10 LOCATION: Bilateral legs. GREATER SAPHENOUS VEIN THIGH: PROXIMAL: Right 11 mm Left 8 mm MID: Right 1 mm Left 4 mm DISTAL: Right 2 mm Left 2 mm CALF: PROXIMAL: Right 1 mm Left 1 mm MID: Right 1 mm Left 1 mm DISTAL: Right 1 mm Left 1 mm FINDINGS: The venous system of the lower extremities are patent by color Doppler imaging. Measurements of the leg veins (in mm) are listed above. CONCLUSION: Normal examination. Phil Trejo MD on April 29, 2017 at 21:42 Board Certified Radiologist. This report was verified electronically.
--- NOTE | 2017-04-29 21:44 | RADRPT ---
EXAM DATE/TIME: 04/29/2017 19:16 [facility] COMPARISON: No previous studies available for comparison. INDICATIONS : Pre-op cardiac surgery. MEDICAL HISTORY : Chest pain. Hystoplasmosis. Dyspnea. Diabetes. NSTEMI. Chronic kidney disesase. SURGICAL HISTORY : Appendectomy. Cholecystectomy. Ulnar nerve surgery. Broken calcaneous. Cardiac cath. ENCOUNTER: Initial ACUITY: 1 day PAIN SCORE: 1/10 LOCATION: Bilateral neck PEAK SYSTOLIC VELOCITIES (cm/sec): ICA/CCA RATIO: Right: 1.2 Left: 0.7 ICA: Right: 103.2 Left: 79.2 CCA: Right: 86.2 Left: 106.5 ECA: Right: 73.9 Left: 86.2 VERTEBRAL: Right: 46.5 antegrade Left: 60.7 antegrade Elevated flow velocities and ICA/CCA ratios have been found to correlate with increased degrees of vessel stenosis, calculated as percentage of diameter relative to a normal segment of distal ICA/CCA FINDINGS: RIGHT CAROTID: No significant stenosis is visualized. The waveforms are within normal limits. LEFT CAROTID: No significant stenosis is visualized. The waveforms are within normal limits. VERTEBRAL ARTERIES: Antegrade flow is seen in both vertebral arteries. MISCELLANEOUS: None. CONCLUSION: 1. Mild plaque in the carotid arteries bilaterally. No hemodynamically significant stenosis. Vertebra l artery flow antegrade bilaterally. Phil Trejo MD on April 29, 2017 at 21:42 Board Certified Radiologist. This report was verified electronically.
[2017-04-30] VITALS (21 sets, daily range): BP systolic 108–142; BP diastolic 46–77; PULSE 56–71; RESP 16–18; TEMP 98.3–99.2; O2SAT 92–97
[2017-04-30] MEDS: NITROGLYCERIN 2% OINT 1 GM PACKET TOP SCH ×4 (02:00→20:00)
[2017-04-30 05:50] LABS: AUTOMATED NEUTROPHIL # 5.9 TH/MM3 (1.8-7.7); BASOPHIL % 0.2 % (0.0-2.0); EOSINOPHIL # 0.1 TH/MM3 (0-0.4); EOSINOPHIL % 1.1 % (0.0-4.0); HEMATOCRIT 41.6 % (39.0-51.0); HEMO FLAGS DIFF FINAL; LYMPHOCYTE # 1.5 TH/MM3 (1.0-4.8); MEAN CELL VOLUME 90.6 FL (80.0-100.0); MEAN CORPUSCULAR HEMOGLOBIN 31.9 PG (27.0-34.0); MEAN CORPUSCULAR HGB CONC 35.3 % (32.0-36.0); MONO % 10.9 % (0.0-8.0); NEUT % 69.8 % (16.0-70.0); PLATELET COUNT 146 TH/MM3 (150-450); RED BLOOD COUNT 4.59 MIL/MM3 (4.50-5.90); RED CELL DISTRIBUTION WIDTH 13.6 % (11.6-17.2); WHITE BLOOD COUNT 8.4 TH/MM3 (4.0-11.0)
[2017-04-30 06:08] LABS: BICARBONATE 30.5 MEQ/L (21.0-32.0); POTASSIUM 4.2 MEQ/L (3.5-5.1)
[2017-04-30] MEDS: INSULIN ASPART SUPPLEMENTAL SCALE SQ SCH ×4 (07:00→21:00)
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
[2017-04-30] MEDS: DOCUSATE SODIUM 50 MG/SENNA 8.6 MG TAB PO SCH ×2 (09:00→20:22)
[2017-04-30] MEDS: METOPROLOL TARTRATE 25 MG TAB PO SCH ×2 (09:00→20:22)
[2017-04-30 09:24] LABS: BACTERIA, URINE RARE /hpf; BLOOD, URINE NEG (NEG); COMMENT (UR) CULT NOT INDICATED; CULTURE IF INDICATED CULT NOT INDICATED; GLUCOSE,URINE 70 mg/dL (NEG); KETONE, URINE NEG (NEG); NITRITE,URINE NEG (NEG); PH, URINE 5.5 (5.0-8.5); URINE COLOR YELLOW (YELLW/STRAW)
--- NOTE | 2017-04-30 09:31 | HHI.PR ---
Subjective Remarks Follow-up for multivessel disease Patient denies any chest pain, SOB, palpitation and his dizziness. Objective Vitals Vital Signs Date Time Temp Pulse Resp B/P Pulse Ox O2 Delivery O2 Flow Rate FiO2 04/30/17 09:09 68 04/30/17 08:12 94 Room Air 04/30/17 08:12 60 04/30/17 08:12 98.6 62 18 119/63 94 04/30/17 04:00 98.4 63 18 108/46 93 04/30/17 04:00 93 Room Air 04/30/17 00:00 99.2 67 18 142/70 92 04/30/17 00:00 92 Room Air 04/29/17 22:00 94 Room Air 04/29/17 22:00 98.6 68 18 120/64 94 04/29/17 18:13 60 04/29/17 17:54 59 04/29/17 17:29 98 04/29/17 16:11 60 04/29/17 15:28 59 04/29/17 15:28 94 Room Air 04/29/17 15:28 98.2 59 18 107/65 94 04/29/17 14:49 59 04/29/17 13:12 66 04/29/17 12:46 97.7 57 18 130/74 97 04/29/17 12:46 59 04/29/17 11:39 100 Room Air 04/29/17 09:38 98 I/O 04/29/17 04/29/17 04/29/17 04/30/17 04/30/17 04/30/17 07:00 15:00 23:00 07:00 15:00 23:00 Intake Total 1620 ml 240 ml Output Total 850 ml Balance 770 ml 240 ml Intake Oral 620 ml 240 ml IV Total 1000 ml Output Urine Total 850 ml # Voids 1 # Bowel Movements 0 Result Diagram: 04/30/1751904/30/17519 Objective Remarks GENERAL: in NAD CARDIOVASCULAR: Regular rate and rhythm without murmurs, gallops, or rubs. RESPIRATORY: Breath sounds equal bilaterally. No accessory muscle use. GASTROINTESTINAL: Abdomen soft, non-tender, nondistended. Medications and IVs Current Medications Sodium Chloride (NS Flush) 2 ml UNSCH PRN IVF FLUSH AFTER USING IV ACCESS; Start 04/28/17 at 16:45; Stop 04/28/17 at 19:22; Status DC Dextrose (D50w (Vial) Inj) 50 ml UNSCH PRN IV HYPOGLYCEMIA-SEE COMMENTS; Start 04/28/17 at 18:45 Glucagon (Glucagon Inj) 1 mg UNSCH PRN OTHER HYPOGLYCEMIA-SEE COMMENTS; Start 04/28/17 at 18:45 Insulin Aspart (NovoLOG SUPPLEMENTAL SCALE) 1 ACHS SLIDING SCALE SQ ; Start 04/28/17 at 21:00 Sodium Chloride (NS Flush) 2 ml BID IV FLUSH Last administered on 04/28/17 21: 00; Start 04/28/17 at 21:00; Stop 04/29/17 at 15:40; Status DC Sodium Chloride (NS Flush) 2 ml UNSCH PRN IV FLUSH FLUSH AFTER USING IV ACCESS ; Start 04/28/17 at 18:45; Stop 04/29/17 at 15:40; Status DC Aspirin (Ecotrin Ec) 325 mg DAILY PO Last administered on 04/29/17 09:34; Start 04/29/17 at 09:00 Nitroglycerin (Nitroglycerin 2% Oint) 1 inch Q6H TOP Last administered on 02:00; Start 04/28/17 at 20:00 Nitroglycerin (Nitrostat Sl) 0.4 mg Q5M PRN SL CHEST PAIN; Start 04/28/17 at 18: 45 Morphine Sulfate (Morphine Inj) 2 mg Q30M PRN IV CHEST PAIN; Start 04/28/17 at 18:45 Acetaminophen (Tylenol) 650 mg Q6H PRN PO HEADACHE OR TEMP > 101 F Last administered on 04/28/17 20:20; Start 04/28/17 at 18:45 Docusate Sodium (Colace) 100 mg BID PRN PO CONSTIPATION; Start 04/28/17 at 18:45 Alprazolam (Xanax) 0.25 mg Q8H PRN PO ANXIETY; Start 04/28/17 at 18:45 Ondansetron HCl (Zofran Inj) 4 mg Q6H PRN IV NAUSEA OR VOMITING; Start 04/28/17 at 18:45 Metoprolol Tartrate (Lopressor) 12.5 mg BID PO ; Start 04/28/17 at 21:00 Atorvastatin Calcium 40 mg 40 mg HS PO ; Start 04/28/17 at 21:00 Heparin Sodium/ Dextrose (Heparin-D5W Inj) 250 ml @ 0 mls/hr TITRATE IV Last administered on 04/28/17t 20:02; Start 04/28/17 at 18:45 Sodium Chloride (NS Flush) 2 ml UNSCH PRN IV FLUSH FLUSH AFTER USING IV ACCESS ; Start 04/28/17 at 18:45; Status UNV Sodium Chloride (NS Flush) 2 ml BID IV FLUSH ; Start 04/28/17 at 21:00; Status UNV Ondansetron HCl (Zofran Inj) 4 mg Q6H PRN IVP NAUSEA OR VOMITING; Start at 18:45; Status UNV Prochlorperazine (Compazine Supp) 25 mg Q12H PRN RECTAL NAUSEA OR VOMITING; Start 04/28/17 at 18:45 Zolpidem Tartrate (Ambien) 5 mg HS PRN PO INSOMNIA; Start 04/28/17 at 18:45 Oxycodone/ Acetaminophen (Percocet 5-325 Mg) 1 tab Q6H PRN PO PAIN SCALE 3 TO 5; Start 04/28/17 at 18:45 Oxycodone/ Acetaminophen (Percocet 10-325 Mg) 1 tab Q6H PRN PO PAIN SCALE 6 TO 10; Start 04/28/17 at 18:45 Morphine Sulfate (Morphine Inj) 2 mg Q3H PRN IV Pain 3-5; if unable to take PO ; Start 04/28/17 at 18:45 Morphine Sulfate (Morphine Inj) 4 mg Q3H PRN IV Pain 6-10;if unable to take PO ; Start 04/28/17 at 18:45 Naloxone HCl (Narcan Inj) 0.4 mg UNSCH PRN IV SEE LABEL COMMENTS; Start at 18:45 Senna/Docusate Sodium (Nancie-Colace) 1 tab BID PO ; Start 04/28/17 at 21:00 Magnesium Hydroxide (Milk Of Magnesia Liq) 30 ml Q12H PRN PO MILD - MODERATE CONSTIPATION; Start 04/28/17 at 18:45 Sennosides (Senokot) 17.2 mg Q12H PRN PO MODERATE - SEVERE CONSTIPATION; Start 04/28/17 at 18:45 Bisacodyl (Dulcolax Supp) 10 mg DAILY PRN RECTAL SEVERE CONSITIPATION; Start at 18:45 Lactulose 30 ml 30 ml DAILY PRN PO SEVERE CONSITIPATION; Start 04/28/17 at 18:45 Heparin Sodium/ Sodium Chloride 500 ml @ As Directed STK-MED ONCE .ROUTE Last administered on 04/29/17 10:12; Start 04/29/17 at 10:12; Stop 04/29/17 at 10:13; Status DC Nitroglycerin (Nitroglycerin Inj) 5 ml @ As Directed STK-MED ONCE .ROUTE ; Start 04/29/17 at 10:12; Stop 04/29/17 at 10:13; Status DC Heparin Sodium (Porcine) (Heparin Inj) 10,000 units STK-MED ONCE .ROUTE ; Start 04/29/17 at 10:13; Stop 04/29/17 at 10:14; Status DC Midazolam HCl (Versed Inj) 2 mg STK-MED ONCE .ROUTE Last administered on 10:31; Start 04/29/17 at 10:13; Stop 04/29/17 at 10:14; Status DC Fentanyl Citrate (fentaNYL INJ) 100 mcg STK-MED ONCE .ROUTE Last administered on 04/29/17 10:32; Start 04/29/17 at 10:14; Stop 04/29/17 at 10:15; Status DC Miscellaneous Information 1 ONCE ONCE XX ; Start 04/29/17 at 11:00; Stop at 11:10; Status DC Bacitracin (Bacitracin Oint Packet) 0.9 gm ONCE ONCE TOP ; Start 04/29/17 at 11: 00; Stop 04/29/17 at 11:09; Status DC Miscellaneous Information 1 ONCE ONCE XX ; Start 04/29/17 at 11:00; Stop at 11:10; Status DC Atropine Sulfate 0.5 mg 0.5 mg UNSCH PRN IV VAGAL REPONSE; Start 04/29/17 at 11: 00 Sodium Chloride (NS 250 ml Inj) 250 ml @ 500 mls/hr ONCE PRN IV VAGAL REPONSE ; Start 04/29/17 at 11:00; Stop 04/30/17 at 10:59 Lidocaine HCl (Xylocaine 1% Inj (50 ml)) 10 ml UNSCH PRN INFIL SHEATH REMOVAL; Start 04/29/17 at 11:00; Stop 04/30/17 at 10:59 Iohexol (OMNIPAQUE 350 INJ (Pigment Grinder)) 100 ml STK-MED ONCE OTHER ; Start at 11:50; Stop 04/29/17 at 11:51; Status DC Iohexol (OMNIPAQUE 350 INJ (Pigment Grinder)) 50 ml STK-MED ONCE OTHER ; Start 04/29/17 at 11:50; Stop 04/29/17 at 11:51; Status DC Sodium Chloride (NS Flush) 2 ml BID IV FLUSH Last administered on 04/29/17t 21: 51; Start 04/29/17 at 21:00 Sodium Chloride 2 ml 2 ml UNSCH PRN IV FLUSH FLUSH AFTER USING IV ACCESS; Start 04/29/17 at 15:30 Papaverine HCl 60 mg/Nitroglycerin 100 mcg/Diltiazem HCl 100 mg/Sodium Chloride 100.0 ml @ 0 mls/hr BEHAVIORAL HEALTH CONSULTANT IRRIGATION ; Start 04/29/17 at 15:30; Stop at 15:29 Cefazolin Sodium 500 mg/Sodium Chloride 505 ml @ 0 mls/hr BEHAVIORAL HEALTH CONSULTANT IRRIGATION ; Start 04/29/17 at 15:30; Stop 05/06/17 at 15:29 Cefazolin Sodium/ Dextrose (Ancef 2 Gm Premix) 50 ml @ 100 mls/hr BEHAVIORAL HEALTH CONSULTANT IV ; Start 04/29/17 at 15:30; Stop 05/06/17 at 15:29 Metoprolol Tartrate (Lopressor) 12.5 mg BEHAVIORAL HEALTH CONSULTANT PO ; Start 04/29/17 at 15:30; Stop 05/06/17 at 15:29 Chlorhexidine Gluconate 1 applic 1 applic BEHAVIORAL HEALTH CONSULTANT TOPICAL ; Start 04/29/17 at 15 :30; Stop 05/06/17 at 15:29 Insulin Human Regular/Sodium Chloride (NovoLIN R (IV INFUSION)/NS Inj) 101 ml @ 0 mls/hr BEHAVIORAL HEALTH CONSULTANT IV ; Start 04/29/17 at 15:30; Stop 05/06/17 at 15:29 A/P Problem List: (1) Diabetes mellitus ICD Code: E11.9 Status: Chronic (2) Chronic kidney disease ICD Code: N18.9 Status: Chronic (3) Non-ST elevation myocardial infarction (NSTEMI) ICD Code: I21.4 Status: Acute Assessment and Plan NSTEMI -Cardiac catheterization today by Dr. her showed multivessel disease. -Patient scheduled for CABG tomorrow. Renal insufficiency -Most likely secondary to hypoperfusion due to NSTEMI. -Improving. Continue to monitor. Avoid nephrotoxins. Diabetes mellitus - hemoglobin A1c 6.6. -Metformin held. Continue with insulin sliding scale. Hyperlipidemia -LDL 75. Continue with statin. Discharge Planning Patient scheduled for CABG tomorrow. Daisha Traylor MD Apr 30, 2017 09:30
[2017-04-30] MEDS: ASPIRIN EC 325 MG TABEC PO SCH (09:33)
[2017-04-30] MEDS: SODIUM CHLORIDE 0.9% FLUSH 10 ML FLUSH IV FLUSH SCH ×2 (09:34→20:24)
[2017-04-30] MEDS: HEPARIN-D5W 25,000 U/250 ML 250 ML IV SCH (10:24)
[2017-04-30 17:38] LABS: APTT (PATIENT) 30.6 SEC (24.3-30.1)
[2017-04-30] MEDS: ATORVASTATIN 40 MG TAB PO SCH (20:22)
[2017-05-01] VITALS (14 sets, daily range): BP systolic 100–146; BP diastolic 41–79; PULSE 63–81; RESP 16–22; TEMP 97.7–99.1; O2SAT 91–97
[2017-05-01 00:34] LABS: APTT (PATIENT) 33.2 SEC (24.3-30.1)
[2017-05-01] MEDS: NITROGLYCERIN 2% OINT 1 GM PACKET TOP SCH ×4 (01:14→20:00)
[2017-05-01] MEDS ORDERED: LACTATED RINGER'S 1000 ML IV PRN (01:45)
[2017-05-01] MEDS ORDERED: POVIDONE IODINE 5% (ANTISEPSIS KIT) 4 APPLICATIONS EACH NARE PRN (01:45)
[2017-05-01] MEDS ORDERED: CHLORHEXIDINE GLUCONATE 2 % 1 PACK (2 CLOTHS) TOPICAL PRN (01:45)
[2017-05-01 04:59] LABS: MEAN CELL VOLUME 90.9 FL (80.0-100.0); MEAN CORPUSCULAR HEMOGLOBIN 31.6 PG (27.0-34.0); MEAN CORPUSCULAR HGB CONC 34.8 % (32.0-36.0); PLATELET COUNT 136 TH/MM3 (150-450); RED BLOOD COUNT 4.74 MIL/MM3 (4.50-5.90); RED CELL DISTRIBUTION WIDTH 13.6 % (11.6-17.2); REVIEW FLAG FINAL; WHITE BLOOD COUNT 6.5 TH/MM3 (4.0-11.0)
[2017-05-01] MEDS ORDERED: CALCIUM CHLORIDE 10% SOLN 1 GRAM/10 ML SYR IV ONE (05:00)
[2017-05-01] MEDS ORDERED: EPINEPHrine HCL (1:1000) 30 MG/30 ML VIAL IV ONE (05:00)
[2017-05-01] MEDS ORDERED: MAGNESIUM SULFATE 1000 MG/2 ML VIAL (PED) IV ONE (05:00)
[2017-05-01] MEDS ORDERED: NITROGLYCERIN-D5W 50 MG/250 ML 250 ML IV ONE (05:00)
[2017-05-01] MEDS ORDERED: HEPARIN SODIUM - SQ 10,000 UNITS/ML VIAL SQ ONE (05:00)
[2017-05-01] MEDS ORDERED: ARTIFICIAL TEARS OPTH OINT 3.5 APPLIC/3.5 GM TUBO ONE (05:00)
[2017-05-01] MEDS ORDERED: PROTAMINE SULFATE 250 MG/25 ML VIAL IV ONE ×2 (05:00→09:08)
[2017-05-01] MEDS ORDERED: AMINOCAPROIC ACID INJ 250 MG/ML 20 ML VIAL IV ONE ×2 (05:00→09:08)
[2017-05-01 05:09] LABS: APTT (PATIENT) 26.8 SEC (24.3-30.1)
[2017-05-01 05:26] LABS: BICARBONATE 26.9 MEQ/L (21.0-32.0); POTASSIUM 4.2 MEQ/L (3.5-5.1)
[2017-05-01] MEDS: INSULIN ASPART SUPPLEMENTAL SCALE SQ SCH ×4 (06:09→21:00)
[2017-05-01] MEDS ORDERED: VANCOMYCIN HCL 1000 MG VIAL ONE (06:26)
[2017-05-01] MEDS ORDERED: ceFAZolin 2 GM PREMIX 50 ML ONE (06:26)
[2017-05-01] MEDS ORDERED: HEPARIN SODIUM - SQ 10,000 UNITS/ML VIAL ONE (06:27)
[2017-05-01] MEDS ORDERED: CHLORHEXIDINE GLUCONATE 2 % 1 PACK (2 CLOTHS) TOPICAL ONE (07:10)
[2017-05-01] MEDS ORDERED: POTASSIUM CHLORIDE 40 MEQ/20 ML VIAL ONE (07:56)
--- NOTE | 2017-05-01 08:32 | PD.CAR.PN ---
CVT Progress Note Subjective/Hospital Course: sts data discussed with pt RISK SCORES About the STS Risk Calculator Procedure: CAB Only Risk of Mortality: 0.85% Morbidity or Mortality: 9.939% Long Length of Stay: 3.505% Short Length of Stay: 55.232% Permanent Stroke: 0.488% Prolonged Ventilation: 5.592% DSW Infection: 0.409% Renal Failure: 2.274% Reoperation: 4.25% Objective: Vital Signs Date Time Temp Pulse Resp B/P Pulse Ox O2 Delivery O2 Flow Rate FiO2 05/01/17 03:17 97.7 63 18 146/70 94 05/01/17 03:17 94 Room Air 05/01/17 03:00 63 04/30/17 23:15 65 18 95 04/30/17 23:15 95 Room Air 04/30/17 23:00 70 04/30/17 20:06 93 21 04/30/17 20:05 98.9 68 18 133/77 93 04/30/17 20:05 93 Room Air 04/30/17 19:00 71 04/30/17 15:00 68 04/30/17 15:00 94 Room Air 04/30/17 15:00 98.3 70 16 135/76 94 04/30/17 14:15 67 04/30/17 13:19 63 04/30/17 12:20 97 04/30/17 12:11 62 04/30/17 11:46 94 Room Air 04/30/17 11:46 98.3 62 18 114/62 94 04/30/17 11:46 64 04/30/17 10:34 67 04/30/17 09:09 68 Labs: Laboratory Tests Test 04/30/17 05/01/17 23:50 04:47 Activated Partial 33.2 SEC 26.8 SEC Thromboplast Time (24.3-30.1) (24.3-30.1) White Blood Count 6.5 TH/MM3 (4.0-11.0) Red Blood Count 4.74 MIL/MM3 (4.50-5.90) Hemoglobin 15.0 GM/DL (13.0-17.0) Hematocrit 43.0 % (39.0-51.0) Mean Corpuscular Volume 90.9 FL (80.0-100.0) Mean Corpuscular Hemoglobin 31.6 PG (27.0-34.0) Mean Corpuscular Hemoglobin 34.8 % Concent (32.0-36.0) Red Cell Distribution Width 13.6 % (11.6-17.2) Platelet Count 136 TH/MM3 (150-450) Mean Platelet Volume 7.4 FL (7.0-11.0) Sodium Level 138 MEQ/L (136-145) Potassium Level 4.2 MEQ/L (3.5-5.1) Chloride Level 104 MEQ/L (98-107) Carbon Dioxide Level 26.9 MEQ/L (21.0-32.0) Anion Gap 7 MEQ/L (5-15) Blood Urea Nitrogen 17 MG/DL (7-18) Creatinine 1.21 MG/DL (0.60-1.30) Estimat Glomerular Filtration 60 ML/MIN (>89) Rate Random Glucose 142 MG/DL (74-106) Calcium Level 8.6 MG/DL (8.5-10.1) Result Diagram: 05/01/17 0447 05/01/17 0447 Cece Rizvi May 01, 2017 08:32
[2017-05-01] MEDS: DOCUSATE SODIUM 50 MG/SENNA 8.6 MG TAB PO SCH ×2 (09:00→20:26)
[2017-05-01] MEDS: METOPROLOL TARTRATE 25 MG TAB PO SCH ×2 (09:00→20:26)
[2017-05-01] MEDS ORDERED: VECURONIUM BROMIDE 20 MG VIAL IV ONE (09:08)
[2017-05-01] MEDS ORDERED: ONDANSETRON HCL 4 MG/2 ML VIAL IV PUSH ONE (09:09)
[2017-05-01] MEDS ORDERED: SODIUM CHLORIDE 0.9% INJ 100 ML IV ONE (09:09)
[2017-05-01] MEDS ORDERED: LACTATED RINGER'S 1000 ML INJ 3,000 ML IV ONE (09:09)
[2017-05-01] MEDS ORDERED: SODIUM CHLOR 0.9% 250 ML INJ 1,000 ML IV ONE (09:10)
[2017-05-01] MEDS ORDERED: SODIUM CHLORID 0.9% 500 ML INJ 500 ML IV ONE (09:10)
[2017-05-01] MEDS ORDERED: NORMOSOL R INJ 3,000 ML IV ONE (09:10)
[2017-05-01] MEDS ORDERED: SUGAMMADEX SODIUM 200 MG/2 ML VIAL IV PUSH ONE ×2 (12:01)
[2017-05-01] MEDS ORDERED: DEXMEDETOMIDINE HCL 200 MCG/2 ML VIAL ONE (12:01)
[2017-05-01] MEDS ORDERED: ceFAZolin INJ 1,000 MG VIAL ONE (12:23)
[2017-05-01] MEDS: DOBUTamine PREMIX DRIP 250 ML IV SCH (12:27)
[2017-05-01] MEDS ORDERED: LACTATED RINGER'S 1000 ML INJ 500 ML IV PRN (12:27)
[2017-05-01] MEDS ORDERED: ACETAMINOPHEN 325 MG TAB PO PRN (12:30)
[2017-05-01] MEDS ORDERED: MAGNESIUM SULFATE INJ 2 GM in SODIUM CHLORIDE 0.9% INJ 100 ML IV PRN ×4 (12:30)
[2017-05-01] MEDS ORDERED: METOPROLOL TARTRATE 5 MG/5 ML VIAL IV PUSH PRN (12:30)
[2017-05-01] MEDS ORDERED: ACETAMINOPHEN 650 MG SUPP RECTAL PRN (12:30)
[2017-05-01] MEDS ORDERED: PHENYLEPHRINE INJ 40 MG in DEXTROSE 5% IN WATE 500 ML INJ 496 ML IV SCH ×2 (12:30)
[2017-05-01] MEDS ORDERED: Post-op Orders (for Pharmacy) MISC OTHER ONE (12:30)
[2017-05-01] MEDS ORDERED: SODIUM CHLORIDE 0.9% FLUSH 10 ML FLUSH IV FLUSH PRN (12:30)
[2017-05-01] MEDS ORDERED: INSULIN REGULAR (IV INFUSION) 100 UNITS in SODIUM CHLORIDE 0.9% INJ 99 ML IV SCH (12:30)
[2017-05-01] MEDS ORDERED: POTASSIUM CHLORIDE 20 MEQ CONTROLLED RELEASE TAB PO PRN ×2 (12:30)
[2017-05-01] MEDS ORDERED: CLEVIDIPINE INJ 50 ML IV SCH (12:30)
[2017-05-01] MEDS ORDERED: ALBUMIN HUMAN 5% 12.5 GM/250 ML BOTTLE IV PRN (12:30)
[2017-05-01] MEDS ORDERED: POTASSIUM CHLOR 20 MEQ PREMIX 100 ML IV PRN ×3 (12:30)
[2017-05-01] MEDS ORDERED: EPINEPHrine (1:1000) INJ 4 MG in DEXTROSE 5% IN WATER INJ 246 ML IV SCH ×2 (12:30)
[2017-05-01] MEDS ORDERED: DEXTROSE 50% IN WATER 50 ML VIAL(D50) IV PUSH PRN (12:30)
[2017-05-01] MEDS ORDERED: RESP: ALBUTEROL 2.5 MG/IPRATROPIUM 0.5 MG NEB (PRN) NEB ×2 (12:30→16:30)
[2017-05-01] MEDS ORDERED: MEPERIDINE HCL 25 MG/ML VIAL IV PRN (12:30)
[2017-05-01] MEDS ORDERED: CALCIUM CHLORIDE INJ 1 GM in SODIUM CHLORIDE 0.9% INJ 100 ML IV PRN (12:30)
[2017-05-01] MEDS ORDERED: MORPHINE SULFATE 4 MG/ML INJ IV PRN (12:30)
[2017-05-01] MEDS ORDERED: RESP: RACEPINEPHRINE 2.25% 0.5 ML NEB NEB PRN ×2 (12:30→16:30)
[2017-05-01] MEDS ORDERED: DOPamine INJ PREMIX 500 ML IV SCH (12:30)
[2017-05-01] MEDS ORDERED: hydrALAZINE HCL 20 MG/ML VIAL IV PRN (12:30)
[2017-05-01] MEDS ORDERED: NITROGLYCERIN-D5W 50 MG/250 ML 250 ML IV SCH (12:30)
[2017-05-01] MEDS ORDERED: CALCIUM CHLORIDE 10% 1 GRAM/10 ML VIAL IV PRN (12:30)
[2017-05-01] MEDS ORDERED: DEXMEDETOMIDINE INJ 200 MCG in SODIUM CHLORIDE 0.9% INJ 50 ML IV SCH (12:30)
--- NOTE | 2017-05-01 12:40 | PD.OP ---
cc: Irving Lopez MD; Leighton Gray MD Operative Report Date of Surgery: May 01, 2017 Preoperative Diagnosis: Postoperative Diagnosis: Procedure: 1. Urgent Off-pump Coronary Artery Bypass Grafting x 4 with Left Internal Mammary Artery (ZAPATA) to Left Anterior Descending (LAD), reverse saphenous vein graft to ramus marginalis, reverse saphenous vein graft to the Obtuse Marginal 1 branch of the Circumflex artery, reverse saphenous vein graft to the Posterior Descending (RPDA) branch of the Right Coronary Artery (RCA) 2. Bilateral Leg Endoscopic Vein La Sal 3. Intraoperative Vein Mapping. Surgeon: Irving Lopez Cyber Incident Handler(s): Spring Hess Operation and Findings: PREPROCEDURE DIAGNOSES 1. Severe Multi Vessel Coronary Artery Disease. 2. Acute Myocardial Infarction (NSTEMI) 3. Severe Left Ventricular Dysfunction POSTPROCEDURE DIAGNOSES Same SURGICAL PROCEDURE 1. Urgent Off-pump Coronary Artery Bypass Grafting x 4 with Left Internal Mammary Artery (ZAPATA) to Left Anterior Descending (LAD), reverse saphenous vein graft to ramus marginalis, reverse saphenous vein graft to the Obtuse Marginal 1 branch of the Circumflex artery, reverse saphenous vein graft to the Posterior Descending (RPDA) branch of the Right Coronary Artery (RCA) 2. Bilateral Leg Endoscopic Vein La Sal 3. Intraoperative Vein Mapping. SURGEON Irving Lopez MD MACHINE FORMER EDGAR Paul ANESTHESIA General endotracheal CONSTRUCTION CHECKER PEGGY Best MD PREPARATION ChloraPrep. COUNTS Needle, sponge, and instrument counts were correct. DRAINS Two 32-Bulgarian mediastinal tubes. COMPLICATIONS None. INDICATIONS FOR PROCEDURE The patient is a 66-year-old presenting with chest pain and AMI. Patient was noted to have severe multi-vessel coronary artery disease with EF 25%. The patient is being brought to the operating room for surgical revascularization therapy. PROCEDURE Patient was brought to the operating room and placed supine on the OR table. Following the induction of adequate general endotracheal anesthesia and placement of appropriate monitoring devices, intraoperative vein mapping was performed which revealed marginal-caliber conduit in bilateral lower extremities. The patient was then prepped and draped in standard sterile fashion. Next, 2500 units of intravenous heparin was given. The right greater saphenous vein was harvested endoscopically and noted to be of poor caliber. At this point the left greater saphenous vein was harvested endoscopically. This appeared to be a good-caliber conduit. Simultaneously, a median sternotomy was performed and the left internal mammary artery dissected free off the posterior sternal table. The patient was systemically heparinized and anticoagulation monitored by serial ACT measurements. The internal mammary artery had excellent pulsatile flow in it and was a good-caliber conduit. The pericardium was then divided in the midline, the cradle created and targets analyzed. At this point, all anastomoses were performed in a beating-heart fashion using the SendMe stabilizing system. The left internal mammary artery was anastomosed to the mid LAD (2 mm) in an end-to-side fashion using 7-0 Prolene. Segment of saphenous vein graft was then anastomosed to the OM1 (1.5 mm) in an end-to-side fashion using 7-0 Prolene. The next segment was anastomosed to the ramus (1.75 mm) in an end-to-side fashion using a running 7-0 Prolene. The final segment was anastomosed to the RPDA (1.5 mm) in an end-to-side fashion using a running 7 -0 Prolene. The proximal anastomoses were then constructed to the ascending aorta in a running manner using 6-0 Prolene. All anastomotic sites were inspected and appeared to be hemostatic and patent. Protamine solution was given. Strict hemostasis was assured. The closure was undertaken. 2 chest tubes were placed. The pericardium was reapproximated in the midline. The sternum was approximated using sternal wires. The muscular and fascial layer were then closed in 3 layers. The endoscopic vein harvest sites were closed in 2 layers. The patient tolerated the procedure well and was transferred to CVICU in stable condition. Irving Lopez MD May 01, 2017 12:39
[2017-05-01] MEDS ORDERED: POTASSIUM CHLOR 20 MEQ PREMIX 100 ML ONE (13:18)
--- NOTE | 2017-05-01 13:48 | RADRPT ---
EXAM DATE/TIME: 05/01/2017 13:11 [facility] COMPARISON: CHEST SINGLE AP, April 28, 2017, 16:42. INDICATIONS : Post-op CABG. MEDICAL HISTORY : Chest pain. Hystoplasmosis. Dyspnea. Diabetes. NSTEMI. Chronic kidney disease. SURGICAL HISTORY : Appendectomy. Cholecystectomy. Ulnar nerve surgery. Broken calcaneous. Cardiac cath. ENCOUNTER: Subsequent ACUITY: 1 day PAIN SCORE: Non-responsive. LOCATION: Bilateral chest FINDINGS: A single view of the chest demonstrates postsurgical changes following CABG. The lungs are hypoaerate d. There is mild patchy airspace disease. Supportive devices which include a right jugular central venous catheter, endotracheal tube, nasogast shu tube, mediastinal drain and left thoracostomy tube are noted in place. No significant mediastinal widening is noted. CONCLUSION: 1. Mild patchy airspace disease status post CABG likely representing atelectasis. 2. Expected postsurgical changes status post CABG. 3. Satisfactory position of support devices. Paresh Soares MD on May 01, 2017 at 13:44 Board Certified Radiologist. This report was verified electronically.
[2017-05-01] MEDS ORDERED: MIDAZOLAM HCL 5 MG/5 ML VIAL ONE (14:16)
[2017-05-01] MEDS ORDERED: fentaNYL CITRATE 1000 MCG/20 ML VIAL ONE (14:16)
[2017-05-01] MEDS: ACETAMINOPHEN 1000 MG/100 ML VIAL IV SCH ×2 (14:23→20:24)
[2017-05-01] MEDS: HEPARIN-D5W 25,000 U/250 ML 250 ML IV SCH (14:26)
[2017-05-01] MEDS ORDERED: IOHEXOL 350 MG/ML 50 ML BTL (for Cath Lab) OTHER ONE (16:04)
--- NOTE | 2017-05-01 16:24 | HHI.PR ---
Subjective Remarks patient see after CABG He is very anxious to sit up. He stated he has pain at the wound site. otherwise no other complaints. his nurse is at the bedside. Objective Vitals Vital Signs Date Time Temp Pulse Resp B/P Pulse Ox O2 Delivery O2 Flow Rate FiO2 05/01/17 15:21 99.1 80 19 110/68 94 05/01/17 15:19 95 Simple Mask 6.00 05/01/17 15:19 81 05/01/17 15:00 99.1 76 18 110/67 95 136/79 05/01/17 14:05 85 Nasal Cannula 6.00 05/01/17 14:00 60 05/01/17 14:00 94 Mask 10 05/01/17 13:45 97.9 05/01/17 13:07 94 60 05/01/17 13:05 97.9 05/01/17 13:05 91 Mechanical Ventilator 60 05/01/17 13:05 97.9 77 17 114/69 93 05/01/17 13:05 75 05/01/17 13:05 60 05/01/17 13:05 97.9 75 16 114/69 91 114/54 05/01/17 03:17 97.7 63 18 146/70 94 05/01/17 03:17 94 Room Air 05/01/17 03:00 63 04/30/17 23:15 65 18 95 04/30/17 23:15 95 Room Air 04/30/17 23:00 70 04/30/17 20:06 93 21 04/30/17 20:05 98.9 68 18 133/77 93 04/30/17 20:05 93 Room Air 04/30/17 19:00 71 I/O 04/30/17 04/30/17 04/30/17 05/01/17 05/01/17 05/01/17 07:00 15:00 23:00 07:00 15:00 23:00 Intake Total 240 ml 316 ml 344 ml 200 ml Output Total 100 ml Balance 240 ml 316 ml 344 ml 100 ml Intake Oral 240 ml 240 ml 240 ml IV Total 76 ml 104 ml 200 ml Output Urine Total 100 ml # Voids 1 1 3 # Bowel Movements 0 0 Result Diagram: 05/01/1744605/01/17446 Objective Remarks GENERAL: in NAD CARDIOVASCULAR: Regular rate and rhythm without murmurs, gallops, or rubs. bandage over wound site mid chest. + chest tube in place. RESPIRATORY: Breath sounds equal bilaterally. No accessory muscle use. GASTROINTESTINAL: Abdomen soft, non-tender, nondistended. Medications and IVs Current Medications Sodium Chloride (NS Flush) 2 ml UNSCH PRN IVF FLUSH AFTER USING IV ACCESS; Start 04/28/17 at 16:45; Stop 04/28/17 at 19:22; Status DC Dextrose (D50w (Vial) Inj) 50 ml UNSCH PRN IV HYPOGLYCEMIA-SEE COMMENTS; Start 04/28/17 at 18:45 Glucagon (Glucagon Inj) 1 mg UNSCH PRN OTHER HYPOGLYCEMIA-SEE COMMENTS; Start 04/28/17 at 18:45 Insulin Aspart (NovoLOG SUPPLEMENTAL SCALE) 1 ACHS SLIDING SCALE SQ ; Start 04/28/17 at 21:00 Sodium Chloride (NS Flush) 2 ml BID IV FLUSH Last administered on 04/28/17 21: 00; Start 04/28/17 at 21:00; Stop 04/29/17 at 15:40; Status DC Sodium Chloride (NS Flush) 2 ml UNSCH PRN IV FLUSH FLUSH AFTER USING IV ACCESS ; Start 04/28/17 at 18:45; Stop 04/29/17 at 15:40; Status DC Aspirin (Ecotrin Ec) 325 mg DAILY PO Last administered on 04/30/17 09:33; Start 04/29/17 at 09:00; Stop 05/01/17 at 14:20; Status DC Nitroglycerin (Nitroglycerin 2% Oint) 1 inch Q6H TOP Last administered on 14:00; Start 04/28/17 at 20:00 Nitroglycerin (Nitrostat Sl) 0.4 mg Q5M PRN SL CHEST PAIN; Start 04/28/17 at 18: 45 Morphine Sulfate (Morphine Inj) 2 mg Q30M PRN IV CHEST PAIN; Start 04/28/17 at 18:45; Stop 05/01/17 at 14:20; Status DC Acetaminophen (Tylenol) 650 mg Q6H PRN PO HEADACHE OR TEMP > 101 F Last administered on 04/28/17 20:20; Start 04/28/17 at 18:45; Stop 05/01/17 at 14:20; Status DC Docusate Sodium (Colace) 100 mg BID PRN PO CONSTIPATION; Start 04/28/17 at 18:45 Alprazolam (Xanax) 0.25 mg Q8H PRN PO ANXIETY; Start 04/28/17 at 18:45 Ondansetron HCl (Zofran Inj) 4 mg Q6H PRN IV NAUSEA OR VOMITING; Start 04/28/17 at 18:45; Stop 05/01/17 at 14:20; Status DC Metoprolol Tartrate (Lopressor) 12.5 mg BID PO ; Start 04/28/17 at 21:00 Atorvastatin Calcium 40 mg 40 mg HS PO ; Start 04/28/17 at 21:00 Heparin Sodium/ Dextrose (Heparin-D5W Inj) 250 ml @ 0 mls/hr TITRATE IV Last administered on 04/30/17t 10:24; Start 04/28/17 at 18:45 Sodium Chloride (NS Flush) 2 ml UNSCH PRN IV FLUSH FLUSH AFTER USING IV ACCESS ; Start 04/28/17 at 18:45; Status UNV Sodium Chloride (NS Flush) 2 ml BID IV FLUSH ; Start 04/28/17 at 21:00; Status UNV Ondansetron HCl (Zofran Inj) 4 mg Q6H PRN IVP NAUSEA OR VOMITING; Start at 18:45; Status UNV Prochlorperazine (Compazine Supp) 25 mg Q12H PRN RECTAL NAUSEA OR VOMITING; Start 04/28/17 at 18:45 Zolpidem Tartrate (Ambien) 5 mg HS PRN PO INSOMNIA; Start 04/28/17 at 18:45 Oxycodone/ Acetaminophen (Percocet 5-325 Mg) 1 tab Q6H PRN PO PAIN SCALE 3 TO 5; Start 04/28/17 at 18:45; Stop 05/01/17 at 14:20; Status DC Oxycodone/ Acetaminophen (Percocet 10-325 Mg) 1 tab Q6H PRN PO PAIN SCALE 6 TO 10; Start 04/28/17 at 18:45; Stop 05/01/17 at 14:20; Status DC Morphine Sulfate (Morphine Inj) 2 mg Q3H PRN IV Pain 3-5; if unable to take PO ; Start 04/28/17 at 18:45; Stop 05/01/17 at 14:20; Status DC Morphine Sulfate (Morphine Inj) 4 mg Q3H PRN IV Pain 6-10;if unable to take PO ; Start 04/28/17 at 18:45; Stop 05/01/17 at 14:20; Status DC Naloxone HCl (Narcan Inj) 0.4 mg UNSCH PRN IV SEE LABEL COMMENTS; Start at 18:45 Senna/Docusate Sodium (Nancie-Colace) 1 tab BID PO ; Start 04/28/17 at 21:00 Magnesium Hydroxide (Milk Of Magnesia Liq) 30 ml Q12H PRN PO MILD - MODERATE CONSTIPATION; Start 04/28/17 at 18:45 Sennosides (Senokot) 17.2 mg Q12H PRN PO MODERATE - SEVERE CONSTIPATION; Start 04/28/17 at 18:45 Bisacodyl (Dulcolax Supp) 10 mg DAILY PRN RECTAL SEVERE CONSITIPATION; Start at 18:45 Lactulose 30 ml 30 ml DAILY PRN PO SEVERE CONSITIPATION; Start 04/28/17 at 18:45 Heparin Sodium/ Sodium Chloride 500 ml @ As Directed STK-MED ONCE .ROUTE Last administered on 04/29/17 10:12; Start 04/29/17 at 10:12; Stop 04/29/17 at 10:13; Status DC Nitroglycerin (Nitroglycerin Inj) 5 ml @ As Directed STK-MED ONCE .ROUTE ; Start 04/29/17 at 10:12; Stop 04/29/17 at 10:13; Status DC Heparin Sodium (Porcine) (Heparin Inj) 10,000 units STK-MED ONCE .ROUTE ; Start 04/29/17 at 10:13; Stop 04/29/17 at 10:14; Status DC Midazolam HCl (Versed Inj) 2 mg STK-MED ONCE .ROUTE Last administered on 10:31; Start 04/29/17 at 10:13; Stop 04/29/17 at 10:14; Status DC Fentanyl Citrate (fentaNYL INJ) 100 mcg STK-MED ONCE .ROUTE Last administered on 04/29/17 10:32; Start 04/29/17 at 10:14; Stop 04/29/17 at 10:15; Status DC Miscellaneous Information 1 ONCE ONCE XX ; Start 04/29/17 at 11:00; Stop at 11:10; Status DC Bacitracin (Bacitracin Oint Packet) 0.9 gm ONCE ONCE TOP ; Start 04/29/17 at 11: 00; Stop 04/29/17 at 11:09; Status DC Miscellaneous Information 1 ONCE ONCE XX ; Start 04/29/17 at 11:00; Stop at 11:10; Status DC Atropine Sulfate 0.5 mg 0.5 mg UNSCH PRN IV VAGAL REPONSE; Start 04/29/17 at 11: 00 Sodium Chloride (NS 250 ml Inj) 250 ml @ 500 mls/hr ONCE PRN IV VAGAL REPONSE ; Start 04/29/17 at 11:00; Stop 04/30/17 at 10:59; Status DC Lidocaine HCl (Xylocaine 1% Inj (50 ml)) 10 ml UNSCH PRN INFIL SHEATH REMOVAL; Start 04/29/17 at 11:00; Stop 04/30/17 at 10:59; Status DC Iohexol (OMNIPAQUE 350 INJ (Electrical Integrator)) 100 ml STK-MED ONCE OTHER ; Start at 11:50; Stop 04/29/17 at 11:51; Status DC Iohexol (OMNIPAQUE 350 INJ (Electrical Integrator)) 50 ml STK-MED ONCE OTHER ; Start 04/29/17 at 11:50; Stop 04/29/17 at 11:51; Status DC Sodium Chloride (NS Flush) 2 ml BID IV FLUSH Last administered on 04/30/17 09: 34; Start 04/29/17 at 21:00; Stop 05/01/17 at 14:20; Status DC Sodium Chloride 2 ml 2 ml UNSCH PRN IV FLUSH FLUSH AFTER USING IV ACCESS; Start 04/29/17 at 15:30; Stop 05/01/17 at 14:20; Status DC Papaverine HCl 60 mg/Nitroglycerin 100 mcg/Diltiazem HCl 100 mg/Sodium Chloride 100.0 ml @ 0 mls/hr QUARRYMAN IRRIGATION Last administered on 05/01/17 07:49; Start 04/29/17 at 15:30; Stop 05/06/17 at 15:29 Cefazolin Sodium 500 mg/Sodium Chloride 505 ml @ 0 mls/hr QUARRYMAN IRRIGATION Last administered on 05/01/17 08:36; Start 04/29/17 at 15:30; Stop 05/06/17 at 15:29 Cefazolin Sodium/ Dextrose (Ancef 2 Gm Premix) 50 ml @ 100 mls/hr QUARRYMAN IV ; Start 04/29/17 at 15:30; Stop 05/06/17 at 15:29 Metoprolol Tartrate (Lopressor) 12.5 mg QUARRYMAN PO Last administered on 04:50; Start 04/29/17 at 15:30; Stop 05/06/17 at 15:29 Chlorhexidine Gluconate 1 applic 1 applic QUARRYMAN TOPICAL Last administered on 05/01/17 03:56; Start 04/29/17 at 15:30; Stop 05/06/17 at 15:29 Insulin Human Regular 100 units/ Sodium Chloride 101 ml @ 0 mls/hr QUARRYMAN IV Last administered on 05/01/17 14:22; Start 04/29/17 at 15:30; Stop 05/06/17 at 15:29 Lactated Ringer's (Lr 1000 ml Inj) 1,000 ml @ 30 mls/hr Q24H PRN IV SEE LABEL COMMENTS Last administered on 05/01/17 14:23; Start 05/01/17 at 01:45; Stop at 01:44 Povidone Iodine (Betadine 5% Antisepsis Kit) 1 applic QUARRYMAN PRN EACH NARE SEE LABEL COMMENTS; Start 05/01/17 at 01:45; Stop 05/04/17 at 01:44 Chlorhexidine Gluconate (Chlorhexidine 2% Cloth) 3 pack QUARRYMAN PRN TOPICAL SEE LABEL COMMENTS; Start 05/01/17 at 01:45; Stop 05/04/17 at 01:44 Vancomycin HCl 3000 mg 3,000 mg STK-MED ONCE .ROUTE Last administered on 06:38; Start 05/01/17 at 06:26; Stop 05/01/17 at 06:27; Status DC Cefazolin Sodium/ Dextrose (Ancef 2 Gm Premix) 50 ml @ As Directed STK-MED ONCE .ROUTE Last administered on 05/01/17 07:50; Start 05/01/17 at 06:26; Stop 07/08 at 06:27; Status DC Heparin Sodium (Porcine) (Heparin Inj) 40,000 units STK-MED ONCE .ROUTE Last administered on 05/01/17t 06:38; Start 05/01/17 at 06:27; Stop 05/01/17 at 06:28 ; Status DC Potassium Chloride (KCl Inj) 2 meq STK-MED ONCE .ROUTE ; Start 05/01/17 at 07:56 ; Stop 05/01/17 at 07:57; Status DC Chlorhexidine Gluconate (Chlorhexidine 2% Cloth) 2 pack STK-MED ONCE TOPICAL Last administered on 05/01/17t 07:10; Start 05/01/17 at 07:10; Stop 05/01/17 at 08:36; Status DC Sugammadex Sodium (Bridion Inj) 200 mg STK-MED ONCE IV PUSH ; Start 05/01/17 at 12:01; Stop 05/01/17 at 12:03; Status DC Dexmedetomidine HCl (Precedex Inj) 200 mcg STK-MED ONCE .ROUTE ; Start 05/01/17 at 12:01; Stop 05/01/17 at 12:03; Status DC Cefazolin Sodium (Ancef Inj) 1,000 mg STK-MED ONCE .ROUTE ; Start 05/01/17 at 12 :23; Stop 05/01/17 at 12:24; Status DC Sodium Chloride (NS Flush) 2 ml BID IV FLUSH ; Start 05/01/17 at 21:00 Sodium Chloride 2 ml 2 ml UNSCH PRN IV FLUSH FLUSH AFTER USING IV ACCESS; Start 05/01/17 at 12:30 Dexmedetomidine HCl 200 mcg/ Sodium Chloride 52 ml @ 0 mls/hr TITRATE IV ; Start 05/01/17 at 12:30 Nitroglycerin/ Dextrose 250 ml @ 0 mls/hr TITRATE IV ; Start 05/01/17 at 12:30 Dobutamine HCl/ Dextrose 250 ml @ 15.405 mls/ hr [id number] IV ; Start 05/01/17 at 12:27 Dopamine HCl/ Dextrose 500 ml @ 0 mls/hr TITRATE IV ; Start 05/01/17 at 12:30 Epinephrine HCl 4 mg/Dextrose 250 ml @ 0 mls/hr TITRATE IV ; Start 05/01/17 at 12:30 Phenylephrine HCl 40 mg/Dextrose 500 ml @ 0 mls/hr TITRATE IV ; Start 05/01/17 at 12:30 Clevidipine (Cleviprex Inj) 50 ml @ 0 mls/hr TITRATE IV ; Start 05/01/17 at 12: 30 Albumin Human 12.5 gm 12.5 gm UNSCH PRN IV SEE LABEL COMMENTS; Start 05/01/17 at 12:30 Lactated Ringer's (Lr 1000 ml Inj) 500 ml @ 500 mls/hr Q1H PRN IV SEE LABEL COMMENTS; Start 05/01/17 at 12:27 Miscellaneous Information (Post-op Orders (for Pharmacy)) STAT ONCE OTHER ; Start 05/01/17 at 12:30; Stop 05/01/17 at 14:15; Status DC Aspirin (Aspirin Chew) 81 mg DAILY PO ; Start 05/02/17 at 09:00 Clopidogrel Bisulfate (Plavix) 75 mg DAILY PO ; Start 05/02/17 at 09:00 Pantoprazole Sodium (Protonix) 40 mg DAILY@06 PO ; Start 05/02/17 at 06:00 Amiodarone HCl (Cordarone) 200 mg Q12HR PO ; Start 05/02/17 at 09:00 Acetaminophen (Tylenol) 650 mg Q4H PRN PO TEMPERATURE > 101 F; Start 05/01/17 at 12:30 Acetaminophen (Tylenol Supp) 650 mg Q4H PRN RECTAL TEMPERATURE > 101 F; Start 05/01/17 at 12:30 Acetaminophen (Ofirmev Inj) 1,000 mg Q6H IV Last administered on 05/01/17 14: 23; Start 05/01/17 at 14:00; Stop 05/02/17 at 08:01 Morphine Sulfate (Morphine Inj) 1 mg Q10M PRN IV PAIN SCALE 1 TO 5; Start 05/01 at 12:30 Meperidine HCl (Demerol Inj) 12.5 mg Q4H PRN IV SEE LABEL COMMENTS; Start 05/01 at 12:30 Oxycodone/ Acetaminophen (Percocet 5-325 Mg) 1 tab Q3H PRN PO PAIN SCALE 1 TO 5; Start 05/01/17 at 12:30 Fentanyl Citrate (fentaNYL INJ) 25 mcg Q1H PRN IV BREAKTHROUGH PAIN Last administered on 05/01/17t 14:21; Start 05/01/17 at 12:30 Ondansetron HCl (Zofran Inj) 4 mg Q6H PRN IV PUSH NAUSEA OR VOMITING; Start 07/08 at 12:30 Hydralazine HCl (Apresoline Inj) 10 mg Q4H PRN IV SEE LABEL COMMENTS; Start 07/08 at 12:30 Metoprolol Tartrate 2.5 mg 2.5 mg Q1H PRN IV PUSH SEE LABEL COMMENTS; Start 07/08 at 12:30 Potassium Chloride 100 ml @ 50 mls/hr UNSCH PRN IV SEE LABEL COMMENTS Last administered on 05/01/17t 14:21; Start 05/01/17 at 12:30 Potassium Chloride 100 ml @ 50 mls/hr UNSCH PRN IV SEE LABEL COMMENTS; Start 05/01/17 at 12:30 Potassium Chloride (KCl 20 Meq Premix Inj) 100 ml @ 50 mls/hr UNSCH PRN IV SEE LABEL COMMENTS; Start 05/01/17 at 12:30 Potassium Chloride (KCl) 20 meq UNSCH PRN PO SEE LABEL COMMENTS; Start at 12:30; Stop 05/01/17 at 14:14; Status DC Potassium Chloride 40 meq 40 meq UNSCH PRN PO SEE LABEL COMMENTS; Start at 12:30; Stop 05/01/17 at 14:14; Status DC Magnesium Sulfate 2 gm/Sodium Chloride 104 ml @ 100 mls/hr UNSCH PRN IV SEE LABEL COMMENTS; Start 05/01/17 at 12:30 Magnesium Sulfate 2 gm/Sodium Chloride 104 ml @ 50 mls/hr UNSCH PRN IV SEE LABEL COMMENTS; Start 05/01/17 at 12:30 Calcium Chloride/ Sodium Chloride (Calcium Chloride Inj/NS Inj) 110 ml @ 100 mls/hr UNSCH PRN IV SEE LABEL COMMENTS; Start 05/01/17 at 12:30 Calcium Chloride 0.5 gm 0.5 gm UNSCH PRN IV SEE LABEL COMMENTS; Start 05/01/17 at 12:30 Insulin Human Regular/Sodium Chloride (NovoLIN R (IV INFUSION)/NS Inj) 100 ml @ 0 mls/hr TITRATE IV ; Start 05/01/17 at 12:30 Dextrose 50 ml 50 ml UNSCH PRN IV PUSH HYPOGLYCEMIA-SEE COMMENTS; Start at 12:30 Cefazolin Sodium/ Dextrose (Ancef 2 Gm Premix) 50 ml @ 100 mls/hr Q8H IV ; Start 05/01/17 at 16:00; Stop 05/03/17 at 00:29 Albuterol/ Ipratropium (Duoneb Neb) 1 ampule Q6HR NEB NEB ; Start 05/01/17 at 16:00 Albuterol/ Ipratropium (Duoneb Neb) 1 ampule Q2HR NEB PRN NEB WHEEZING; Start 05/01/17 at 12:30; Stop 05/01/17 at 16:17; Status DC Racepinephrine 0.5 ml 0.5 ml UNSCH X1 PRN NEB STRIDOR; Start 05/01/17 at 12:30 ; Stop 05/01/17 at 14:17; Status DC Potassium Chloride (KCl 20 Meq Premix Inj) 100 ml @ As Directed STK-MED ONCE .ROUTE ; Start 05/01/17 at 13:18; Stop 05/01/17 at 13:19; Status DC Midazolam HCl (Versed Inj) 10 mg STK-MED ONCE .ROUTE ; Start 05/01/17 at 14:16; Stop 05/01/17 at 14:17; Status DC Fentanyl Citrate (fentaNYL INJ) 2,000 mcg STK-MED ONCE .ROUTE ; Start 05/01/17 at 14:16; Stop 05/01/17 at 14:17; Status DC Iohexol (OMNIPAQUE 350 INJ (Electrical Integrator)) 50 ml STK-MED ONCE OTHER ; Start at 16:04; Stop 05/01/17 at 16:05; Status DC Albuterol/ Ipratropium (Duoneb Neb) 1 ampule Q6HR NEB NEB ; Start 05/01/17 at 22:00 Albuterol/ Ipratropium (Duoneb Neb) 1 ampule Q2HR NEB PRN NEB WHEEZING; Start 05/01/17 at 16:30 Racepinephrine (Racepinephrine 2.25% Neb) 0.5 ml UNSCH X1 PRN NEB STRIDOR; Start 05/01/17 at 16:30; Stop 05/03/17 at 16:29 A/P Problem List: (1) Diabetes mellitus ICD Code: E11.9 Status: Chronic (2) Chronic kidney disease ICD Code: N18.9 Status: Chronic (3) Non-ST elevation myocardial infarction (NSTEMI) ICD Code: I21.4 Status: Acute Assessment and Plan NSTEMI/severe multivessel disease -Cardiac catheterization on 04/30/17v by Dr. her showed multivessel disease. -s/p Coronary Artery Bypass Grafting x 4 with Left Internal Mammary Artery (ZAPATA ) to Left Anterior Descending (LAD), reverse saphenous vein graft to ramus marginalis, reverse saphenous vein graft to the Obtuse Marginal 1 branch of the Circumflex artery, reverse saphenous vein graft to the Posterior Descending ( RPDA) branch of the Right Coronary Artery (RCA), with bilateral Leg Endoscopic Vein Foster -management per cardiovascular surgeon. Renal insufficiency -Most likely secondary to hypoperfusion due to NSTEMI. -resolved. Continue to monitor. Avoid nephrotoxins. Diabetes mellitus - hemoglobin A1c 6.6. -Metformin held. Continue with insulin sliding scale. Hyperlipidemia -LDL 75. Continue with statin. Daisha Traylor MD May 01, 2017 16:24
[2017-05-01] MEDS: ONDANSETRON HCL 4 MG/2 ML VIAL IV PUSH PRN (17:04)
[2017-05-01] MEDS: ceFAZolin 2 GM PREMIX 50 ML IV SCH ×2 (17:05→23:59)
[2017-05-01] MEDS: RESP: ALBUTEROL 2.5 MG/IPRATROPIUM 0.5 MG NEB (SCH) NEB ×3 (17:37→21:55)
[2017-05-01] MEDS: ATORVASTATIN 40 MG TAB PO SCH (20:26)
[2017-05-01] MEDS: SODIUM CHLORIDE 0.9% FLUSH 10 ML FLUSH IV FLUSH SCH (20:47)
[2017-05-01] MEDS: oxyCODONE/ACETAMINOPHEN 5 MG/325 MG TAB PO PRN (23:23)
[2017-05-02] VITALS (12 sets, daily range): BP systolic 99–140; BP diastolic 53–84; PULSE 69–96; RESP 16–22; TEMP 97.5–99.3; O2SAT 90–99
[2017-05-02] MEDS: NITROGLYCERIN 2% OINT 1 GM PACKET TOP SCH (02:00)
[2017-05-02] MEDS: ACETAMINOPHEN 1000 MG/100 ML VIAL IV SCH ×2 (03:41→08:25)
[2017-05-02] MEDS: RESP: ALBUTEROL 2.5 MG/IPRATROPIUM 0.5 MG NEB (SCH) NEB ×3 (03:45→20:00)
[2017-05-02] MEDS: DOBUTamine PREMIX DRIP 250 ML IV SCH (04:41)
[2017-05-02] MEDS: PANTOPRAZOLE SOD 40 MG DELAYED RELEASE TAB PO SCH (05:12)
--- NOTE | 2017-05-02 05:32 | RADRPT ---
EXAM DATE/TIME: 05/02/2017 04:48 [facility] COMPARISON: CHEST SINGLE AP, May 01, 2017, 13:11. INDICATIONS : Status post CABG. MEDICAL HISTORY : Chest pain. Hystoplasmosis. Dyspnea. Diabetes. NSTEMI. Chronic kidney disease. SURGICAL HISTORY : Appendectomy. Cholecystectomy. Ulnar nerve surgery. Broken calcaneous. ENCOUNTER: Initial ACUITY: 4 - 6 days PAIN SCORE: Non-responsive. LOCATION: chest FINDINGS: Median sternotomy/CABG changes are again noted. There is bibasilar atelectasis, mild on the right and moderate on the left, both sides not significantly changed. No large effusion. No pneumothorax. Patient has been extubated. Nasogastric tube also out. Right internal jugular central venous catheter remains in place, tip in the right atrium. A mediastinal drain and left chest tube also persist. CONCLUSION: 1. Left greater than right basilar atelectasis not significantly changed. 2. Endotracheal tube and nasogastric tube removed. Other lines and tubes remain in place, including a left chest tube. No pneumothorax. Timo Worley MD on May 02, 2017 at 5:29 Board Certified Radiologist. This report was verified electronically.
[2017-05-02 05:35] LABS: HEMATOCRIT 39.7 % (39.0-51.0); MEAN CELL VOLUME 91.9 FL (80.0-100.0); MEAN CORPUSCULAR HEMOGLOBIN 31.6 PG (27.0-34.0); MEAN CORPUSCULAR HGB CONC 34.4 % (32.0-36.0); PLATELET COUNT 195 TH/MM3 (150-450); RED BLOOD COUNT 4.32 MIL/MM3 (4.50-5.90); RED CELL DISTRIBUTION WIDTH 13.8 % (11.6-17.2); WHITE BLOOD COUNT 17.7 TH/MM3 (4.0-11.0)
[2017-05-02 05:38] LABS: REVIEW FLAG FINAL
[2017-05-02 05:51] LABS: BICARBONATE 27.5 MEQ/L (21.0-32.0); MAGNESIUM 2.2 MG/DL (1.5-2.5); POTASSIUM 4.2 MEQ/L (3.5-5.1)
[2017-05-02] MEDS: INSULIN ASPART SUPPLEMENTAL SCALE SQ SCH ×5 (06:28→22:10)
[2017-05-02] MEDS: ceFAZolin 2 GM PREMIX 50 ML IV SCH ×2 (08:25→16:10)
[2017-05-02] MEDS: oxyCODONE/ACETAMINOPHEN 5 MG/325 MG TAB PO PRN ×4 (08:28→20:46)
[2017-05-02] MEDS ORDERED: DEXTROSE 50% IN WATER 50 ML VIAL(D50) IV PRN (08:45)
[2017-05-02] MEDS ORDERED: SOD PHOSPHATE/SOD BIPHOSPHATE (ADULT) ENEMA 133ML RECTAL PRN (08:45)
[2017-05-02] MEDS ORDERED: GLUCAGON 1 MG/ML VIAL OTHER PRN (08:45)
[2017-05-02] MEDS ORDERED: BISACODYL 10 MG SUPP RECTAL PRN (08:45)
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
[2017-05-02] MEDS: MAGNESIUM HYDROXIDE SUSP 30 ML CUP PO SCH (09:00)
[2017-05-02] MEDS ORDERED: PILL SPLITTER OTHER PRN (09:15)
[2017-05-02] MEDS: MORPHINE SULFATE 4 MG/ML INJ IV PUSH PRN (09:18)
[2017-05-02] MEDS: METOCLOPRAMIDE HCL 10 MG/2 ML VIAL IV SCH ×3 (09:22→20:45)
[2017-05-02] MEDS ORDERED: INSULIN DETEMIR 100 UNITS/ML VIAL SQ ONE (09:30)
[2017-05-02] MEDS: AMIODARONE 200 MG TAB PO SCH ×2 (10:23→20:46)
[2017-05-02] MEDS: ASPIRIN 81 MG CHEW TAB PO SCH (10:23)
[2017-05-02] MEDS: SODIUM CHLORIDE 0.9% FLUSH 10 ML FLUSH IV FLUSH SCH ×2 (10:24→20:46)
[2017-05-02] MEDS: METOPROLOL TARTRATE 25 MG TAB PO SCH ×2 (10:24→20:46)
[2017-05-02] MEDS: CLOPIDOGREL 75 MG TAB PO SCH (10:24)
[2017-05-02] MEDS: MULTIVITAMINS/MINERALS THERAPEUTIC TAB PO SCH (12:58)
--- NOTE | 2017-05-02 15:47 | HHI.PR ---
Subjective Remarks The patient said that the pain medications were helping. He said he is having a hard time breathing secondary to chest pain with each breath. He has been having a hard time sleeping at night. He has not urinated since this morning. Discussed with nursing. Objective Vitals Vital Signs Date Time Temp Pulse Resp B/P Pulse Ox O2 Delivery O2 Flow Rate FiO2 05/02/17 11:00 69 05/02/17 11:00 69 05/02/17 11:00 97.5 69 16 112/76 95 05/02/17 11:00 95 Nasal Cannula 5.00 05/02/17 11:00 97.5 69 16 112/76 94 05/02/17 10:18 96 Nasal Cannula 5.00 05/02/17 09:30 16 05/02/17 09:30 16 05/02/17 08:00 90 Nasal Cannula 5.00 05/02/17 08:00 84 05/02/17 08:00 98.6 84 16 111/67 90 05/02/17 06:15 22 05/02/17 04:00 98.9 72 18 99/53 92 112/68 05/02/17 03:52 92 Nasal Cannula 5.00 05/02/17 03:30 73 05/02/17 02:00 89 Nasal Cannula 5.00 05/02/17 00:00 98.2 74 22 108/59 95 102/69 05/02/17 00:00 74 05/01/17 23:50 95 Nasal Cannula 4.00 05/01/17 21:57 97 Nasal Cannula 4.00 05/01/17 19:50 95 Nasal Cannula 4.00 05/01/17 19:50 98.0 74 22 104/68 95 100/41 05/01/17 19:00 72 05/01/17 17:38 95 Nasal Cannula 4.00 05/01/17 17:27 98.3 I/O 05/01/17 05/01/17 05/01/17 05/02/17 05/02/17 05/02/17 07:00 15:00 23:00 07:00 15:00 23:00 Intake Total 344 ml 1440 ml 972 ml 550 ml Output Total 625 ml 365 ml 0 ml Balance 344 ml 815 ml 607 ml 550 ml Intake Oral 240 ml 30 ml 480 ml 400 ml IV Total 104 ml 1410 ml 492 ml 150 ml Output Urine Total 475 ml 285 ml 0 ml Chest Tube Drainage Total 150 ml 80 ml # Voids 3 # Bowel Movements 0 0 0 Result Diagram: 05/02/17 0520 05/02/17 0520 Imaging Last Impressions Chest X-Ray 05/02/17 0500 Signed Impressions: Service Date/Time: Tuesday, May 02, 2017 04:48 - CONCLUSION: 1. Left greater than right basilar atelectasis not significantly changed. 2. Endotracheal tube and nasogastric tube removed. Other lines and tubes remain in place, including a left chest tube. No pneumothorax. Timo Worley MD Lower Extremity Ultrasound 04/29/17 0000 Signed Impressions: Service Date/Time: Saturday, April 29, 2017 20:00 - CONCLUSION: Normal examination. Phil Trejo MD Carotid Artery Ultrasound 04/29/17 0000 Signed Impressions: Service Date/Time: Saturday, April 29, 2017 19:16 - CONCLUSION: 1. Mild plaque in the carotid arteries bilaterally. No hemodynamically significant stenosis. Vertebral artery flow antegrade bilaterally. Phil Trejo MD Objective Remarks GENERAL: Well-developed well-nourished gentleman in no acute respiratory distress. SKIN: Focused skin assessment warm/dry. HEAD: Atraumatic. Normocephalic. EYES: Pupils equal and round. No scleral icterus. No injection or drainage. ENT: No nasal bleeding or discharge. Mucous membranes pink and moist. NECK: Trachea midline. No JVD. Supple. CARDIOVASCULAR: Regular rate and rhythm. No murmur appreciated. RESPIRATORY: No accessory muscle use. Clear to auscultation. Breath sounds equal bilaterally. GASTROINTESTINAL: Abdomen soft, non-tender, nondistended. MUSCULOSKELETAL: Chest tube in place. Bandage mid-sternum. NEUROLOGICAL: Awake and alert. No obvious cranial nerve deficits. Motor grossly within normal limits. Normal speech. PSYCHIATRIC: Appropriate mood and affect; insight and judgment normal. Procedures CABG Medications and IVs Current Medications Medications (Trade) Dose Ordered Sig/Sera Route Start Time Stop Time Status Last Admin (Lipitor) 40 mg HS PO 04/28/17 21:00 05/01/17 20:26 (Compazine Supp) 25 mg Q12H PRN RECTAL 04/28/17 18:45 (Dulcolax Supp) 10 mg DAILY PRN RECTAL 04/28/17 18:45 (Lactulose Liq) 30 ml DAILY PRN PO 04/28/17 18:45 (NS Flush) 2 ml BID IV FLUSH 05/01/17 21:00 05/02/17 10:24 (NS Flush) 2 ml UNSCH PRN IV FLUSH 05/01/17 12:30 (Aspirin Chew) 81 mg DAILY PO 05/02/17 09:00 05/02/17 10:23 (Plavix) 75 mg DAILY PO 05/02/17 09:00 05/02/17 10:24 (Protonix) 40 mg DAILY@06 PO 05/02/17 06:00 05/02/17 05:12 (Cordarone) 200 mg Q12HR PO 05/02/17 09:00 05/02/17 10:23 (Tylenol) 650 mg Q4H PRN PO 05/01/17 12:30 (Percocet 5-325 Mg) 1 tab Q3H PRN PO 05/01/17 12:30 05/02/17 12:59 Ondansetron HCl 4 mg 4 mg Q6H PRN IV PUSH 05/01/17 12:30 05/01/17 17:04 (Ancef 2 Gm Premix) 50 ml @ 100 mls/hr Q8H IV 05/01/17 16:00 05/03/17 00:29 05/02/17 08:25 (Reglan Inj) 5 mg Q6H IV 05/02/17 09:30 05/03/17 03:31 05/02/17 09:22 (Colace) 100 mg BID PO 05/02/17 21:00 (Theragran M Tab) 1 tab DAILY PO 05/02/17 09:00 05/02/17 12:58 (Milk Of Magnesia Liq) 30 ml DAILY PO 05/02/17 09:00 (Miralax) 17 gm DAILY PO 05/03/17 09:00 (Senokot) 8.6 mg HS PO 05/02/17 21:00 (Fleets Enema (Adult)) 133 ml UNSCH PRN RECTAL 05/02/17 08:45 (Lopressor) 12.5 mg BID PO 05/02/17 09:00 05/02/17 10:24 (NovoLOG SUPPLEMENTAL SCALE) 1 02,06,10,14,18,22 SQ 05/02/17 10:00 05/03/17 06:01 05/02/17 14:00 (D50w (Vial) Inj) 50 ml UNSCH PRN IV 05/02/17 08:45 (Glucagon Inj) 1 mg UNSCH PRN OTHER 05/02/17 08:45 (Morphine Inj) 2 mg Q4HR PRN IV PUSH 05/02/17 08:45 05/02/17 09:18 (Percocet 5-325 Mg) 2 tab Q3HR PRN PO 05/02/17 08:45 (Pill Splitter) 1 ea UNSCH PRN OTHER 05/02/17 09:15 (NovoLOG SUPPLEMENTAL SCALE) 1 ACHS SQ 05/03/17 11:00 A/P Problem List: (1) Diabetes mellitus ICD Code: E11.9 Status: Chronic (2) Chronic kidney disease ICD Code: N18.9 Status: Chronic (3) Non-ST elevation myocardial infarction (NSTEMI) ICD Code: I21.4 Status: Acute Assessment and Plan NSTEMI/severe multivessel disease Cardiac catheterization on 04/30/17v by Dr. her showed multivessel disease. S/p Coronary Artery Bypass Grafting x 4 with Left Internal Mammary Artery (ZAPATA) to Left Anterior Descending (LAD), reverse saphenous vein graft to ramus marginalis , reverse saphenous vein graft to the Obtuse Marginal 1 branch of the Circumflex artery, reverse saphenous vein graft to the Posterior Descending ( RPDA) branch of the Right Coronary Artery (RCA), with bilateral Leg Endoscopic Vein [place]. - management per cardiovascular surgeon. - pain control with a bowel regimen. - oxygen and nebs as needed. - rehab efforts. - incentive spirometry. Renal insufficiency Most likely secondary to hypoperfusion due to NSTEMI. - resolved. Continue to monitor. Avoid nephrotoxins. Diabetes mellitus Hemoglobin A1c 6.6. - Metformin held. - Continue with insulin sliding scale. Urinary retention Nursing concern of decreased urine output 05/02. [place] was recently discontinued. - Bladder scan pending. - Replace [place] if needed. PPx: Per surgery Shaw Chaudhari DO May 02, 2017 15:47
--- NOTE | 2017-05-02 16:52 | EKG ---
Date Performed: 05/02/2017 Time Performed: 08:14:30 PTAGE: 66 years EKG: CONSIDER ACUTE ST ELEVATION [place] Sinus rhythm Borderline Short IA interval Nonspecific T wave change anterolaterally with slight ST elevation in l ead I and AVL and in V2, this may be findings of pericarditis post-surgery, but are nonspecific. Poss ible inferior infarct, age undetermined Compared to previous tracing, there are now Q waves in leads III and AVF. T wave changes anterolaterally are new. The slight ST elevation is new in leads I and AV L and slightly in V2. Clinical correlation is recommended Abnormal ECG PREVIOUS TRACING : 04/29/2017 06.39 DOCTOR: Rosendo Herman Interpretating Date/Time 05/02/2017 16:50:46
[2017-05-02] MEDS: ATORVASTATIN 40 MG TAB PO SCH (20:46)
[2017-05-02] MEDS: SENNOSIDES 8.6 MG TAB PO SCH ×2 (20:46→20:49)
[2017-05-02] MEDS: DOCUSATE SODIUM 100 MG CAP PO SCH (20:46)
[2017-05-03] VITALS (34 sets, daily range): BP systolic 108–141; BP diastolic 67–86; PULSE 80–138; RESP 16–18; TEMP 97.7–99; O2SAT 93–97
[2017-05-03] MEDS: oxyCODONE/ACETAMINOPHEN 5 MG/325 MG TAB PO PRN ×5 (00:04→18:11)
[2017-05-03] MEDS: ceFAZolin 2 GM PREMIX 50 ML IV SCH (00:05)
[2017-05-03] MEDS: MORPHINE SULFATE 4 MG/ML INJ IV PUSH PRN (00:08)
[2017-05-03] MEDS: INSULIN ASPART SUPPLEMENTAL SCALE SQ SCH ×5 (02:00→21:36)
[2017-05-03] MEDS: METOCLOPRAMIDE HCL 10 MG/2 ML VIAL IV SCH (03:30)
[2017-05-03] MEDS: PANTOPRAZOLE SOD 40 MG DELAYED RELEASE TAB PO SCH (05:24)
[2017-05-03] MEDS ORDERED: AMIODARONE 150 MG/D5W 97 ML BOLUS 10 MINUTES IV ONE ×4 (06:30→23:15)
[2017-05-03 07:29] LABS: BICARBONATE 27.1 MEQ/L (21.0-32.0); MAGNESIUM 2.2 MG/DL (1.5-2.5); POTASSIUM 4.4 MEQ/L (3.5-5.1)
[2017-05-03 07:31] LABS: AUTOMATED NEUTROPHIL # 14.9 TH/MM3 (1.8-7.7); BASOPHIL % 0.2 % (0.0-2.0); EOSINOPHIL % 0.3 % (0.0-4.0); HEMATOCRIT 36.7 % (39.0-51.0); HEMO FLAGS DIFF FINAL; LYMPH % 7.9 % (9.0-44.0); LYMPHOCYTE # 1.5 TH/MM3 (1.0-4.8); MEAN CELL VOLUME 92.1 FL (80.0-100.0); MEAN CORPUSCULAR HEMOGLOBIN 31.7 PG (27.0-34.0); MEAN CORPUSCULAR HGB CONC 34.4 % (32.0-36.0); MONO % 10.9 % (0.0-8.0); NEUT % 80.7 % (16.0-70.0); PLATELET COUNT 201 TH/MM3 (150-450); RED BLOOD COUNT 3.99 MIL/MM3 (4.50-5.90); RED CELL DISTRIBUTION WIDTH 13.9 % (11.6-17.2); WHITE BLOOD COUNT 18.4 TH/MM3 (4.0-11.0)
[2017-05-03] MEDS: POLYETHYLENE GLYCOL 17 GM PKG PO SCH (07:38)
[2017-05-03] MEDS: CLOPIDOGREL 75 MG TAB PO SCH (07:39)
[2017-05-03] MEDS: DOCUSATE SODIUM 100 MG CAP PO SCH ×2 (07:40→21:34)
[2017-05-03] MEDS: METOPROLOL TARTRATE 25 MG TAB PO SCH ×2 (07:40→21:35)
[2017-05-03] MEDS: ASPIRIN 81 MG CHEW TAB PO SCH (07:40)
[2017-05-03] MEDS: MULTIVITAMINS/MINERALS THERAPEUTIC TAB PO SCH (07:40)
[2017-05-03] MEDS: AMIODARONE 200 MG TAB PO SCH ×2 (07:40→16:47)
[2017-05-03] MEDS: SODIUM CHLORIDE 0.9% FLUSH 10 ML FLUSH IV FLUSH SCH ×2 (07:41→21:34)
[2017-05-03] MEDS: MAGNESIUM HYDROXIDE SUSP 30 ML CUP PO SCH (07:41)
[2017-05-03] MEDS: RESP: ALBUTEROL 2.5 MG/IPRATROPIUM 0.5 MG NEB (SCH) NEB ×3 (07:42→20:00)
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
[2017-05-03] MEDS ORDERED: METOPROLOL TARTRATE 25 MG TAB PO ONE (13:30)
--- NOTE | 2017-05-03 17:33 | HHI.PR ---
Subjective Remarks Fu CAD/ sp CABG, diabetes mellitus Patient denies cp/sob states has some abdominal bloating but is passing gas and denies diarrhea. Creatinine slightly elevated when compare to previous days. afib this am Objective Vitals Vital Signs Date Time Temp Pulse Resp B/P Pulse Ox O2 Delivery O2 Flow Rate FiO2 05/03/17 17:00 100 05/03/17 16:25 84 05/03/17 15:01 88 05/03/17 15:01 98.6 85 18 140/86 97 05/03/17 15:01 97 Room Air 4.00 05/03/17 14:21 83 05/03/17 13:24 84 05/03/17 12:13 119 05/03/17 11:26 95 Room Air 4.00 05/03/17 11:26 99 05/03/17 11:26 98.4 106 18 119/67 95 05/03/17 10:48 18 05/03/17 10:00 116 05/03/17 09:10 106 05/03/17 08:34 124 05/03/17 08:34 96 Room Air 4.00 05/03/17 08:34 105 05/03/17 08:34 98.6 103 18 141/78 96 05/03/17 08:33 96 Nasal Cannula 4.00 05/03/17 08:20 18 05/03/17 06:00 138 05/03/17 05:00 82 05/03/17 04:00 86 05/03/17 03:57 Nasal Cannula 3.00 05/03/17 03:57 97.7 85 119/77 97 05/03/17 03:00 87 05/03/17 03:00 86 05/03/17 02:00 86 05/03/17 01:00 80 05/03/17 00:00 92 05/02/17 23:00 85 05/02/17 23:00 86 05/02/17 23:00 Nasal Cannula 3.00 05/02/17 23:00 97.8 82 140/79 97 05/02/17 22:00 92 05/02/17 21:00 96 05/02/17 20:00 99.3 90 136/84 94 05/02/17 20:00 92 05/02/17 20:00 Nasal Cannula 3.00 05/02/17 19:00 82 I/O 05/02/17 05/02/17 05/02/17 05/03/17 05/03/17 05/03/17 06:59 14:59 22:59 06:59 14:59 22:59 Intake Total 972 ml 550 ml 290 ml 480 ml 600 ml Output Total 365 ml 0 ml 350 ml 540 ml 450 ml Balance 607 ml 550 ml -60 ml -60 ml 150 ml Intake Oral 480 ml 400 ml 240 ml 480 ml 600 ml IV Total 492 ml 150 ml 50 ml Output Urine Total 285 ml 0 ml 250 ml 450 ml 450 ml Chest Tube Drainage Total 80 ml 100 ml 90 ml Bladder Scan Volume Amount 132 ml # Bowel Movements 0 0 1 0 Result Diagram: 05/03/17 0545 05/03/17 0545 Imaging Last Impressions Chest X-Ray 05/02/17 0500 Signed Impressions: Service Date/Time: Tuesday, May 02, 2017 04:48 - CONCLUSION: 1. Left greater than right basilar atelectasis not significantly changed. 2. Endotracheal tube and nasogastric tube removed. Other lines and tubes remain in place, including a left chest tube. No pneumothorax. Timo Worley MD Lower Extremity Ultrasound 04/29/17 0000 Signed Impressions: Service Date/Time: Saturday, April 29, 2017 20:00 - CONCLUSION: Normal examination. Phil Trejo MD Carotid Artery Ultrasound 04/29/17 0000 Signed Impressions: Service Date/Time: Saturday, April 29, 2017 19:16 - CONCLUSION: 1. Mild plaque in the carotid arteries bilaterally. No hemodynamically significant stenosis. Vertebral artery flow antegrade bilaterally. Phil Trejo MD Objective Remarks AAOx3, NAD Clear lungs BL S1 S2 (+) no edema in lower extremities Procedures CABG Medications and IVs Current Medications Medications (Trade) Dose Ordered Sig/Sera Route Start Time Stop Time Status Last Admin (Lipitor) 40 mg HS PO 04/28/17 21:00 05/02/17 20:46 (Compazine Supp) 25 mg Q12H PRN RECTAL 04/28/17 18:45 (Dulcolax Supp) 10 mg DAILY PRN RECTAL 04/28/17 18:45 (Lactulose Liq) 30 ml DAILY PRN PO 04/28/17 18:45 (NS Flush) 2 ml BID IV FLUSH 05/01/17 21:00 05/03/17 07:41 (NS Flush) 2 ml UNSCH PRN IV FLUSH 05/01/17 12:30 (Aspirin Chew) 81 mg DAILY PO 05/02/17 09:00 05/03/17 07:40 (Plavix) 75 mg DAILY PO 05/02/17 09:00 05/03/17 07:39 (Protonix) 40 mg DAILY@06 PO 05/02/17 06:00 05/02/17 05:12 (Tylenol) 650 mg Q4H PRN PO 05/01/17 12:30 (Percocet 5-325 Mg) 1 tab Q3H PRN PO 05/01/17 12:30 05/03/17 07:39 (Zofran Inj) 4 mg Q6H PRN IV PUSH 05/01/17 12:30 05/01/17 17:04 (Colace) 100 mg BID PO 05/02/17 21:00 05/02/17 20:46 (Theragran M Tab) 1 tab DAILY PO 05/02/17 09:00 05/03/17 07:40 (Milk Of Magnesia Liq) 30 ml DAILY PO 05/02/17 09:00 05/03/17 07:41 (Miralax) 17 gm DAILY PO 05/03/17 09:00 05/03/17 07:38 (Senokot) 8.6 mg HS PO 05/02/17 21:00 (Fleets Enema (Adult)) 133 ml UNSCH PRN RECTAL 05/02/17 08:45 (D50w (Vial) Inj) 50 ml UNSCH PRN IV 05/02/17 08:45 (Glucagon Inj) 1 mg UNSCH PRN OTHER 05/02/17 08:45 (Morphine Inj) 2 mg Q4HR PRN IV PUSH 05/02/17 08:45 05/03/17 00:08 (Percocet 5-325 Mg) 2 tab Q3HR PRN PO 05/02/17 08:45 05/03/17 09:45 (Pill Splitter) 1 ea UNSCH PRN OTHER 05/02/17 09:15 (NovoLOG SUPPLEMENTAL SCALE) 1 ACHS SQ 05/03/17 11:00 05/03/17 16:50 (Cordarone) 400 mg Q8H PO 05/03/17 09:00 05/03/17 16:47 (Lopressor) 25 mg BID PO 05/03/17 21:00 Urinary Catheter: No Vascular Central Line Catheter: No A/P Problem List: (1) Diabetes mellitus ICD Code: E11.9 Status: Chronic (2) Chronic kidney disease ICD Code: N18.9 Status: Chronic (3) Non-ST elevation myocardial infarction (NSTEMI) ICD Code: I21.4 Status: Acute (4) S/P CABG x 4 ICD Code: Z95.1 Status: Acute Assessment and Plan NSTEMI/severe multivessel disease Cardiac catheterization on 04/30/17v by Dr. her showed multivessel disease. S/p Coronary Artery Bypass Grafting x 4 with Left Internal Mammary Artery (ZAPATA) to Left Anterior Descending (LAD), reverse saphenous vein graft to ramus marginalis , reverse saphenous vein graft to the Obtuse Marginal 1 branch of the Circumflex artery, reverse saphenous vein graft to the Posterior Descending ( RPDA) branch of the Right Coronary Artery (RCA), with bilateral Leg Endoscopic Vein [place]. - management per cardiovascular surgeon. - pain control with a bowel regimen. - oxygen and nebs as needed. - rehab efforts. - incentive spirometry. - Continue ASA, BB, plavix Amiodarone and beta lucas started for asymptomatic afib ALYSIA on CKD stage III Most likely secondary to hypoperfusion due to NSTEMI. 05/03 Creatinine slightly worsenedn at 1.4. Continue to monitor and trend BUN/ creatinine. Encourage oral intake of IV fluids. Diabetes mellitus Hemoglobin A1c 6.6. - Metformin held. - Continue with insulin sliding scale. 05/03 Blood sugars elevated int he 200's. Ok to resume metformin in GFR stable or improving. Urinary retention Nursing concern of decreased urine output 05/02. [place] was recently discontinued. - sp [place] catheter, no retention on bladder scan. Atrial fibrillation - nor ate controlled. Continue to monitor on telemetry. Cardiology increased dose of beta lucas and dose of amiodarone. PPx: Per surgery Discharge Planning Dc pending cardiology clearance. Kendall Douglas MD May 03, 2017 17:33
--- NOTE | 2017-05-03 18:00 | EKG ---
Date Performed: 05/03/2017 Time Performed: 06:14:10 PTAGE: 66 years EKG: CONSIDER ACUTE ST ELEVATION [place] Atrial fibrillation with rapid ventricular response Inferior infarct - age undetermined Left ventricular hypertrophy Lateral ST elevation, CONSIDER ACUTE INFARCT Compared to previous tracing, atrial fibrillation is new. ST-T wave changes persist. Clinica l correlation is strongly recommended Abnormal ECG PREVIOUS TRACING : 05/02/2017 08.14 DOCTOR: Patricio Phillip Interpretating Date/Time 05/03/2017 17:59:31
[2017-05-03] MEDS: ONDANSETRON HCL 4 MG/2 ML VIAL IV PUSH PRN (20:56)
[2017-05-03] MEDS: ATORVASTATIN 40 MG TAB PO SCH (21:34)
[2017-05-03] MEDS: SENNOSIDES 8.6 MG TAB PO SCH (21:35)
[2017-05-04] VITALS (26 sets, daily range): BP systolic 100–128; BP diastolic 70–84; PULSE 67–82; RESP 18–20; TEMP 97.7–98.5; O2SAT 93–97
[2017-05-04] MEDS: AMIODARONE 200 MG TAB PO SCH ×3 (00:58→17:10)
[2017-05-04] MEDS: PANTOPRAZOLE SOD 40 MG DELAYED RELEASE TAB PO SCH (06:00)
[2017-05-04] MEDS: INSULIN ASPART SUPPLEMENTAL SCALE SQ SCH ×4 (06:04→22:02)
[2017-05-04 07:27] LABS: HEMATOCRIT 34.6 % (39.0-51.0); MEAN CELL VOLUME 92.6 FL (80.0-100.0); MEAN CORPUSCULAR HGB CONC 34.5 % (32.0-36.0); PLATELET COUNT 234 TH/MM3 (150-450); RED BLOOD COUNT 3.74 MIL/MM3 (4.50-5.90); RED CELL DISTRIBUTION WIDTH 13.7 % (11.6-17.2); REVIEW FLAG FINAL; WHITE BLOOD COUNT 16.3 TH/MM3 (4.0-11.0)
[2017-05-04] MEDS: RESP: ALBUTEROL 2.5 MG/IPRATROPIUM 0.5 MG NEB (SCH) NEB ×2 (08:00→08:57)
[2017-05-04] MEDS: CLOPIDOGREL 75 MG TAB PO SCH (08:06)
[2017-05-04] MEDS: MAGNESIUM HYDROXIDE SUSP 30 ML CUP PO SCH (08:06)
[2017-05-04] MEDS: DOCUSATE SODIUM 100 MG CAP PO SCH (08:06)
[2017-05-04] MEDS: METOPROLOL TARTRATE 25 MG TAB PO SCH ×2 (08:06→22:03)
[2017-05-04] MEDS: POLYETHYLENE GLYCOL 17 GM PKG PO SCH (08:06)
[2017-05-04] MEDS: ASPIRIN 81 MG CHEW TAB PO SCH (08:06)
[2017-05-04] MEDS: MULTIVITAMINS/MINERALS THERAPEUTIC TAB PO SCH (08:07)
[2017-05-04] MEDS: SODIUM CHLORIDE 0.9% FLUSH 10 ML FLUSH IV FLUSH SCH ×2 (08:07→22:03)
[2017-05-04] MEDS: ONDANSETRON HCL 4 MG/2 ML VIAL IV PUSH PRN (10:11)
[2017-05-04] MEDS: oxyCODONE/ACETAMINOPHEN 5 MG/325 MG TAB PO PRN ×3 (10:11→22:03)
--- NOTE | 2017-05-04 10:19 | RADRPT ---
EXAM DATE/TIME: 05/04/2017 09:58 [place] COMPARISON: No previous studies available for comparison. INDICATIONS : Abdominal pain. MEDICAL HISTORY : Chest pain. Hystoplasmosis. Dyspnea. Diabetes. NSTEMI. Chronic kidney disease. SURGICAL HISTORY : Appendectomy. Cholecystectomy. Ulnar nerve surgery. Broken calcaneous. ENCOUNTER: Initial ACUITY: 1 day PAIN SCORE: 5/10 LOCATION: Bilateral abdomen. FINDINGS: A single AP erect view of the upper and mid abdomen was obtained. The lower abdomen and pelvis was no t included. There is an abnormal bowel gas pattern present with mild gaseous distention and what appe ars to be the transverse and descending colon. There are multiple loops of air-containing small bowel with multiple air-fluid levels. There is no free air. There is patchy opacity at the left lung base. The patient is noted to be status post median sternotomy. CONCLUSION: Abnormal bowel gas pattern which could represent an ileus or possible obstruction. Shaw Hernandez MD on May 04, 2017 at 10:15 Board Certified Radiologist. This report was verified electronically.
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
[2017-05-04 16:47] LABS: BICARBONATE 27.4 MEQ/L (21.0-32.0)
[2017-05-04 18:06] LABS: C. DIFF EPI 027 PRESUMPTIVE NEGATIVE (NEGATIVE)
--- NOTE | 2017-05-04 18:15 | HHI.PR ---
Subjective Remarks c/o diarrhea and lower abdominal pain some cough but denies sob no fevers c/o low appetite Objective Vitals Vital Signs Date Time Temp Pulse Resp B/P Pulse Ox O2 Delivery O2 Flow Rate FiO2 05/04/17 17:02 73 05/04/17 16:03 72 05/04/17 15:13 97.7 72 18 100/74 93 05/04/17 15:13 70 05/04/17 15:13 93 Room Air 05/04/17 14:18 78 05/04/17 13:25 18 05/04/17 13:20 68 05/04/17 12:05 67 05/04/17 11:10 97 Nasal Cannula 2.00 05/04/17 11:10 71 05/04/17 11:10 98.3 72 18 127/84 95 05/04/17 10:18 72 05/04/17 10:17 97 Nasal Cannula 2.00 05/04/17 09:01 73 05/04/17 08:54 97 Nasal Cannula 2.00 05/04/17 08:54 98.3 78 20 128/79 97 05/04/17 08:54 77 05/04/17 06:00 74 05/04/17 05:00 72 05/04/17 04:00 72 05/04/17 03:16 75 18 127/70 97 05/04/17 03:16 97 Nasal Cannula 3.00 05/04/17 03:00 75 05/04/17 02:00 74 05/04/17 01:00 82 05/04/17 00:00 82 05/03/17 23:56 93 Nasal Cannula 3.00 05/03/17 23:53 82 05/03/17 23:43 86 18 121/78 94 05/03/17 23:40 87 18 116/86 94 05/03/17 23:36 111 18 111/79 95 05/03/17 23:33 132 18 137/77 94 05/03/17 23:32 108 18 114/86 95 05/03/17 23:30 95 Nasal Cannula 3.00 05/03/17 23:28 110 18 108/73 95 05/03/17 23:00 137 05/03/17 23:00 137 18 123/81 94 05/03/17 22:00 92 05/03/17 21:00 94 05/03/17 20:00 92 05/03/17 19:30 99.0 89 16 122/76 93 05/03/17 19:30 93 Nasal Cannula 3.00 05/03/17 19:00 92 05/03/17 18:14 90 I/O 05/03/17 05/03/17 05/03/17 05/04/17 05/04/17 05/04/17 07:00 15:00 23:00 07:00 15:00 23:00 Intake Total 480 ml 600 ml 400 ml 480 ml Output Total 540 ml 450 ml 500 ml Balance -60 ml 150 ml -100 ml 480 ml Intake Oral 480 ml 600 ml 400 ml 480 ml Output Urine Total 450 ml 450 ml 500 ml Chest Tube Drainage Total 90 ml # Voids 4 # Bowel Movements 1 0 2 1 Result Diagram: 05/04/17 0552 05/04/17 1529 Imaging Last Impressions Abdomen X-Ray 05/04/17 0000 Signed Impressions: Service Date/Time: Thursday, May 04, 2017 09:58 - CONCLUSION: Abnormal bowel gas pattern which could represent an ileus or possible obstruction. Shaw Hernandez MD Chest X-Ray 05/02/17 0500 Signed Impressions: Service Date/Time: Tuesday, May 02, 2017 04:48 - CONCLUSION: 1. Left greater than right basilar atelectasis not significantly changed. 2. Endotracheal tube and nasogastric tube removed. Other lines and tubes remain in place, including a left chest tube. No pneumothorax. Timo Worley MD Lower Extremity Ultrasound 04/29/17 0000 Signed Impressions: Service Date/Time: Saturday, April 29, 2017 20:00 - CONCLUSION: Normal examination. Phil Trejo MD Carotid Artery Ultrasound 04/29/17 0000 Signed Impressions: Service Date/Time: Saturday, April 29, 2017 19:16 - CONCLUSION: 1. Mild plaque in the carotid arteries bilaterally. No hemodynamically significant stenosis. Vertebral artery flow antegrade bilaterally. Phil Trejo MD Objective Remarks AAOx3, NAD Clear lungs BL S1 S2 (+) no edema in lower extremities abdomen is soft w hyperactive bowel sounds, mildly tender to palpation on hypogastrium Procedures CABG Medications and IVs Current Medications Medications (Trade) Dose Ordered Sig/Sera Route Start Time Stop Time Status Last Admin (Lipitor) 40 mg HS PO 04/28/17 21:00 05/03/17 21:34 (NS Flush) 2 ml BID IV FLUSH 05/01/17 21:00 05/04/17 08:07 (NS Flush) 2 ml UNSCH PRN IV FLUSH 05/01/17 12:30 (Aspirin Chew) 81 mg DAILY PO 05/02/17 09:00 05/04/17 08:06 (Plavix) 75 mg DAILY PO 05/02/17 09:00 05/04/17 08:06 (Protonix) 40 mg DAILY@06 PO 05/02/17 06:00 05/02/17 05:12 (Tylenol) 650 mg Q4H PRN PO 05/01/17 12:30 (Percocet 5-325 Mg) 1 tab Q3H PRN PO 05/01/17 12:30 05/04/17 17:14 (Zofran Inj) 4 mg Q6H PRN IV PUSH 05/01/17 12:30 05/04/17 10:11 (Theragran M Tab) 1 tab DAILY PO 05/02/17 09:00 05/04/17 08:07 (Milk Of Magnesia Liq) 30 ml DAILY PO 05/02/17 09:00 05/03/17 07:41 (Miralax) 17 gm DAILY PO 05/03/17 09:00 05/04/17 08:06 (D50w (Vial) Inj) 50 ml UNSCH PRN IV 05/02/17 08:45 (Glucagon Inj) 1 mg UNSCH PRN OTHER 05/02/17 08:45 (Pill Splitter) 1 ea UNSCH PRN OTHER 05/02/17 09:15 (NovoLOG SUPPLEMENTAL SCALE) 1 ACHS SQ 05/03/17 11:00 05/04/17 17:13 (Cordarone) 400 mg Q8H PO 05/03/17 09:00 05/04/17 17:10 (Lopressor) 25 mg BID PO 05/03/17 21:00 05/04/17 08:06 A/P Problem List: (1) Diabetes mellitus ICD Code: E11.9 Status: Chronic (2) Chronic kidney disease ICD Code: N18.9 Status: Chronic (3) Non-ST elevation myocardial infarction (NSTEMI) ICD Code: I21.4 Status: Acute (4) S/P CABG x 4 ICD Code: Z95.1 Status: Acute (5) Ischemic cardiomyopathy ICD Code: I25.5 Status: Acute (6) Diarrhea ICD Code: R19.7 Status: Acute Assessment and Plan NSTEMI/severe multivessel disease Cardiac catheterization on 04/30/17v by Dr. her showed multivessel disease. S/p Coronary Artery Bypass Grafting x 4 with Left Internal Mammary Artery (ZAPATA) to Left Anterior Descending (LAD), reverse saphenous vein graft to ramus marginalis , reverse saphenous vein graft to the Obtuse Marginal 1 branch of the Circumflex artery, reverse saphenous vein graft to the Posterior Descending ( RPDA) branch of the Right Coronary Artery (RCA), with bilateral Leg Endoscopic Vein [place]. - management per cardiovascular surgeon. - pain control with a bowel regimen. - oxygen and nebs as needed. - rehab efforts. - incentive spirometry. - Continue ASA, BB, plavix Amiodarone and beta lucas started for asymptomatic afib LAYSIA on CKD stage III Most likely secondary to hypoperfusion due to NSTEMI. 05/03 Creatinine slightly worsenedn at 1.4. Continue to monitor and trend BUN/ creatinine. Encourage oral intake of IV fluids. 05/04 Creatinine much improved today and ALYSIA resolved. Creatinine down to 1.19. Continue to monitor BUN/Creatinine, avoid nephrotoxins. Diabetes mellitus Hemoglobin A1c 6.6. - Metformin held. - Continue with insulin sliding scale. 05/03 Blood sugars elevated int he 200's. Ok to resume metformin in GFR stable or improving. 05/04 Blood sugar in the 180's. Continue to hold metformin due to present diarrhea. Urinary retention Nursing concern of decreased urine output 05/02. [place] was recently discontinued. - sp mayfield catheter, no retention on bladder scan. Atrial fibrillation - nor ate controlled. Continue to monitor on telemetry. Cardiology increased dose of beta lucas and dose of amiodarone. Diarrhea/abdominal pain - Check for C diff toxin PCR. Hold all laxatives. Will start on lactobacillus acidophilus. PPx: Per surgery Discharge Planning Dc pending CV clearance. Kendall Douglas MD May 04, 2017 18:15
[2017-05-04] MEDS: ATORVASTATIN 40 MG TAB PO SCH (22:03)
[2017-05-05] VITALS (18 sets, daily range): BP systolic 114–119; BP diastolic 67–72; PULSE 66–76; RESP 17–18; TEMP 97.8–98.5; O2SAT 93–94
[2017-05-05] MEDS: AMIODARONE 200 MG TAB PO SCH ×2 (00:25→08:44)
[2017-05-05] MEDS: oxyCODONE/ACETAMINOPHEN 5 MG/325 MG TAB PO PRN (03:49)
[2017-05-05] MEDS: PANTOPRAZOLE SOD 40 MG DELAYED RELEASE TAB PO SCH (06:00)
[2017-05-05] MEDS: INSULIN ASPART SUPPLEMENTAL SCALE SQ SCH ×2 (06:16→13:08)
[2017-05-05 07:05] LABS: BASOPHIL % 0.4 % (0.0-2.0); EOSINOPHIL # 0.3 TH/MM3 (0-0.4); EOSINOPHIL % 3.1 % (0.0-4.0); HEMATOCRIT 32.6 % (39.0-51.0); HEMO FLAGS DIFF FINAL; LYMPH % 15.1 % (9.0-44.0); LYMPHOCYTE # 1.5 TH/MM3 (1.0-4.8); MEAN CELL VOLUME 91.8 FL (80.0-100.0); MEAN CORPUSCULAR HGB CONC 34.9 % (32.0-36.0); MONO % 9.6 % (0.0-8.0); NEUT % 71.8 % (16.0-70.0); PLATELET COUNT 231 TH/MM3 (150-450); RED BLOOD COUNT 3.55 MIL/MM3 (4.50-5.90); RED CELL DISTRIBUTION WIDTH 13.5 % (11.6-17.2); WHITE BLOOD COUNT 9.8 TH/MM3 (4.0-11.0)
[2017-05-05 07:12] LABS: ANION GAP 8 MEQ/L (5-15); AST (GOT) 35 U/L (15-37); BICARBONATE 27.8 MEQ/L (21.0-32.0); BLOOD UREA NITROGEN 25 MG/DL (7-18); CHLORIDE 100 MEQ/L (98-107); GLOMERULAR FILTRATION RATE 65 ML/MIN (>89); POTASSIUM 3.9 MEQ/L (3.5-5.1); SODIUM (NA) 136 MEQ/L (136-145)
[2017-05-05 07:15] LABS: ALKALINE PHOSPHATASE 36 U/L (45-117); ALT (GPT) 32 U/L (12-78); TOTAL BILIRUBIN ADULT 0.8 MG/DL (0.2-1.0)
[2017-05-05] MEDS: POLYETHYLENE GLYCOL 17 GM PKG PO SCH (08:41)
[2017-05-05] MEDS: MAGNESIUM HYDROXIDE SUSP 30 ML CUP PO SCH (08:41)
[2017-05-05] MEDS: METOPROLOL TARTRATE 25 MG TAB PO SCH (08:42)
[2017-05-05] MEDS: MULTIVITAMINS/MINERALS THERAPEUTIC TAB PO SCH (08:42)
[2017-05-05] MEDS: CLOPIDOGREL 75 MG TAB PO SCH (08:42)
[2017-05-05] MEDS: ASPIRIN 81 MG CHEW TAB PO SCH (08:43)
[2017-05-05] MEDS: LACTOBACILLUS ACIDOPHILUS TAB PO SCH ×3 (08:43→12:00)
[2017-05-05] MEDS: SODIUM CHLORIDE 0.9% FLUSH 10 ML FLUSH IV FLUSH SCH (08:44)
--- NOTE | 2017-05-05 10:32 | HHI.FF ---
Face to Face Verification Diagnosis: (1) Diabetes mellitus (2) Chronic kidney disease (3) Non-ST elevation myocardial infarction (NSTEMI) (4) Ischemic cardiomyopathy (5) S/P CABG x 4 Home Health Nursing Order: Signs/symptoms of disease process CHF education Medication education-adverse effect Wound care and dressing changes Nursing assessment with vital signs Instructions: Heart and Vascular Surgery patients *Special attention to sternal dressing Mandatory frequency Assess and evaluation, 4 days in a row The next week 3X week 2 times a week for 4 weeks 1 time a week for 5 weeks Schedule Heart and Vascular patients for full 60 day certification period Initial visit Review Open Heart Surgery Discharge Instructions (Sternal precautions, Activity, Elastic hose, Incision care, Driving, Incentive spirometry, Smoking, [place], Work and other) Need Betadine to paint incision Medication reconciliation Importance of follow up care/ check on appointments Make calendar record temperature daily When to call [facility] nurse, review instructions, phone list Incentive Spirometry, demonstration Visit 1- Begin discharge instruction for patient family and/ or caregiver using teach back method- Signs and symptoms of infection Disease characteristics Medicines and side effects Foods and nutrition/ appetite Infection control/ hand washing/ hygiene Visit 2- Continue teaching Discharge instructions- include additional information on smoking cessation , sternal dressing (sternal vac) Visit 3- Continue teaching- Cough and deep breathing, incision monitoring. Choose my plate Visit 4- Continue teaching- Discuss limitations Discuss how they are feeling Discuss progress toward goals Remaining visits- continue teaching and monitoring PREVENA Single Use Negative Wound Therapy System Caregiver Instruction Sheet 1. A Prevena dressing system was applied to the chest incision during surgery , to promote wound healing. It works via a suction device (negative pressure wound therapy) to remove low to moderate levels of exudate (drainage) and infectious materials. We recommend that the device stay in place for up to seven days, from day of surgery. 2. Day of Surgery__05/01/17 Day of Removal 05/08/17 3. The dressing should only be removed by a health career technical education instructor. Please arrange removal of device to coincide with Home Health visit and or with Nursing staff at Rehab 4. If skin reddening or irritation of skin occurs, or excessive drainage, please notify the Cardiovascular Surgeons office at [phone]. 5. Light showering is permissible; however the pump should be disconnected and placed in safe location, where it will not get wet. The dressing should not be exposed to direct spray or submerged in water. No bath tub / shower only. Ensure the end of the tubing attached to the dressing is facing down so that water does not enter the top of the tube. 6. To remove Prevena dressing: press purple button to turn off device / remove the suction. Then disconnect the tubing from the pump. The fixation strips should be stretched away from the skin and the dressing lifted at one corner and peeled back until it has been fully removed. 7. After removal, it is ok to shower daily using liquid dial soap and clean wash cloth, rinse and pat dry, and leave incision open to air dry. For any concerns regarding Prevena dressing, and or wounds, please contact Elyse Green, patient navigator at [phone] or notify the Cardiovascular Surgeons office at [phone]. Incentive spirometry Q1 hr x 10, while awake, also use acapella device hourly whole awake Sternal Breast Bone Precautions: NO pushing or pulling, ( pt must use sternal pillow to support chest with all activities and with coughing ( takes up to 3 months breast bone to heal ) Daily incision care: ok to shower daily, no tub bath. Wash all incisions with liquid dial soap, clean wash cloth to each site, rinse and pat dry. Observe for any signs of infection, such as drainage which is dark yellow, martinez, green or foul smelling. Immediately report to the surgeon any drainage from the chest incision, or legs, and for any abnormal drainage from the chest tube sites. Notify surgeon if any temp >101.5 degrees F. When specialty dressing removed/ or if you do not have one, continue to shower daily as above, then rinse and pat incision dry and paint with betadine daily x 5 days. Allow steri strips to fall off if you have any. Avoid lotions, creams, salves, oils, etc. for the first month Please see attached forms for additional instructions regarding post Open Heart specialty wound vacuum dressings. MITALI or Prevena , Dressing to be removed by Nursing staff on ____05/08/17___ F/U appointment: as per DC instructions: PCP in 2 weeks, CV surgeon 2 weeks, Ceramic Tile Installer 3-4 weeks For any questions regarding incisions/ dressing / meds / post op care or above Symptoms, Friday 8am-5pm Heart & Vascular Surgery Office ( Dr. Lopez & Dr. Marin), After Hours / Nights (5pm -8am) Weekends and Holidays Please call [facility] ([facility]) Charge Nurse I have seen patient Cornelius Barker on 05/05/17. My clinical findings support the need for the requested home health care services because: Deconditioned w/ increased weakness I certify that my clinical findings support that this patient is homebound because: Post-op weakness Cece Rizvi May 05, 2017 10:32
[2017-05-05] MEDS ORDERED: EPINEPHrine HCL (1:10,000) 1 MG/10 ML SYRINGE ONE (10:36)
[2017-05-05] MEDS ORDERED: ATROPINE SULFATE 1 MG/10 ML SYRINGE ONE (10:36)
[2017-05-05] MEDS ORDERED: ASPI81CH25 PO (10:37)
[2017-05-05] MEDS ORDERED: THERM PO (10:37)
[2017-05-05] MEDS ORDERED: AMIO200T PO (10:37)
[2017-05-05] MEDS ORDERED: OXYC1TAB63 PO (10:37)
[2017-05-05] MEDS ORDERED: LISI-519 PO (10:37)
[2017-05-05] MEDS ORDERED: PLAV75TA29 PO (10:37)
[2017-05-05] MEDS ORDERED: METO25TA3 PO (10:37)
[2017-05-05] MEDS ORDERED: ATOR40TA16 PO (10:37)
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
[2017-05-05] MEDS ORDERED: LISINOPRIL 5 MG TAB PO SCH (11:00)
--- NOTE | 2017-05-05 11:33 | RADRPT ---
EXAM DATE/TIME: 05/05/2017 10:50 [place] COMPARISON: ABDOMEN UPRIGHT ONLY, May 04, 2017, 9:58. INDICATIONS : Abdominal discomfort post surgery. MEDICAL HISTORY : Hystoplasmosis. Dyspnea. Diabetes. NSTEMI. Chronic kidney SURGICAL HISTORY : Cholecystectomy. CABG. Appendectomy. ulnar nerve repair; calcaneous ENCOUNTER: Initial ACUITY: 2 days PAIN SCORE: 1/10 LOCATION: Bilateral abdomen FINDINGS: 2 supine frontal views of the abdomen demonstrates air distended colon with a mildly air distended sm all bowel in the central abdomen. Overall, the degree of bowel distention has improved/decreased. No transition point is appreciated. There is no organomegaly or concerning calcifications. Patient is po st median sternotomy. There are degenerative changes of the lumbar spine. CONCLUSION: Mild continued distention of the colon but there are no features to indicate bowel obstruction. Imagi ng features suggest improved ileus. Overall bowel gas pattern has improved (decreased size of distend ed bowel) compared to yesterday's examination. Timo Gu MD on May 05, 2017 at 11:30 Board Certified Radiologist. This report was verified electronically.
--- NOTE | 2017-05-05 12:11 | HHI.PR ---
Subjective Remarks no complains of chest pain or shortness of breath no nausea or vomiting telemetry - SR Objective Vitals Vital Signs Date Time Temp Pulse Resp B/P Pulse Ox O2 Delivery O2 Flow Rate FiO2 05/05/17 11:00 Room Air 05/05/17 11:00 70 05/05/17 10:00 66 05/05/17 09:00 66 05/05/17 08:00 68 05/05/17 07:30 96 Room Air 05/05/17 07:30 97.8 76 17 119/71 94 05/05/17 07:00 72 05/05/17 06:00 68 05/05/17 05:00 66 05/05/17 04:00 93 Room Air 05/05/17 04:00 72 05/05/17 04:00 72 18 117/67 93 05/05/17 03:00 68 05/05/17 02:00 70 05/05/17 01:00 68 05/05/17 00:29 93 Room Air 05/05/17 00:29 71 18 117/72 93 05/05/17 00:00 68 05/04/17 23:00 69 05/04/17 22:00 70 05/04/17 21:00 72 05/04/17 20:00 74 05/04/17 19:35 98.5 78 18 125/72 94 05/04/17 19:35 94 Room Air 05/04/17 19:00 67 05/04/17 18:14 18 05/04/17 18:12 75 05/04/17 17:02 73 05/04/17 16:03 72 05/04/17 15:13 97.7 72 18 100/74 93 05/04/17 15:13 70 05/04/17 15:13 93 Room Air 05/04/17 14:18 78 05/04/17 13:20 68 I/O 05/04/17 05/04/17 05/04/17 05/05/17 05/05/17 05/05/17 07:00 15:00 23:00 07:00 15:00 23:00 Intake Total 400 ml 480 ml 400 ml Output Total 500 ml 550 ml Balance -100 ml 480 ml -150 ml Intake Oral 400 ml 480 ml 400 ml Output Urine Total 500 ml 550 ml # Voids 4 # Bowel Movements 2 1 0 Result Diagram: 05/05/17 0545 05/05/17 0545 Imaging Last Impressions Abdomen X-Ray 05/05/17 0000 Signed Impressions: Service Date/Time: Friday, May 05, 2017 10:50 - CONCLUSION: Mild continued distention of the colon but there are no features to indicate bowel obstruction. Imaging features suggest improved ileus. Overall bowel gas pattern has improved (decreased size of distended bowel) compared to yesterday's examination. Timo Gu MD Chest X-Ray 05/02/17 0500 Signed Impressions: Service Date/Time: Tuesday, May 02, 2017 04:48 - CONCLUSION: 1. Left greater than right basilar atelectasis not significantly changed. 2. Endotracheal tube and nasogastric tube removed. Other lines and tubes remain in place, including a left chest tube. No pneumothorax. Tmio Worley MD Lower Extremity Ultrasound 04/29/17 0000 Signed Impressions: Service Date/Time: Saturday, April 29, 2017 20:00 - CONCLUSION: Normal examination. Phil Trejo MD Carotid Artery Ultrasound 04/29/17 0000 Signed Impressions: Service Date/Time: Saturday, April 29, 2017 19:16 - CONCLUSION: 1. Mild plaque in the carotid arteries bilaterally. No hemodynamically significant stenosis. Vertebral artery flow antegrade bilaterally. Phil Trejo MD Objective Remarks awake and alert NAD anicteric sternum- VAC dressing in place lungs no rales or wheezes regular rhythm abdomen soft, nontender, good bowel sounds extremities = trace pretibial edema neuro exam- unremarkable Procedures CABG A/P Problem List: (1) Diabetes mellitus ICD Code: E11.9 Status: Chronic (2) Chronic kidney disease ICD Code: N18.9 Status: Chronic (3) Non-ST elevation myocardial infarction (NSTEMI) ICD Code: I21.4 Status: Acute (4) S/P CABG x 4 ICD Code: Z95.1 Status: Acute (5) Ischemic cardiomyopathy ICD Code: I25.5 Status: Acute (6) Diarrhea ICD Code: R19.7 Status: Acute Assessment and Plan 66 years old male ACS - NSTEMI/severe multivessel disease S/p CABG. Echo confirms low EF Cardiac catheterization on 04/30/17v by Dr. her showed multivessel disease. S/p Coronary Artery Bypass Grafting x 4 with Left Internal Mammary Artery (ZAPATA) to Left Anterior Descending (LAD), reverse saphenous vein graft to ramus marginalis , reverse saphenous vein graft to the Obtuse Marginal 1 branch of the Circumflex artery, reverse saphenous vein graft to the Posterior Descending ( RPDA) branch of the Right Coronary Artery (RCA), with bilateral Leg Endoscopic Vein [place]. - cleared for DC - pain control with a bowel regimen. - oxygen and nebs as needed. - rehab efforts. - incentive spirometry. - Continue ASA, BB, plavix Amiodarone and beta lucas started for asymptomatic afib- now in SR. - Lisinopril 2.5 mg po daily - ALYSIA on CKD stage III Most likely secondary to hypoperfusion due to NSTEMI. 05/03 Creatinine slightly worsenedn at 1.4. Continue to monitor and trend BUN/ creatinine. Encourage oral intake of IV fluids. 05/04 Creatinine much improved today and ALYSIA resolved. Creatinine down to 1.19. Continue to monitor BUN/Creatinine, avoid nephrotoxins. Diabetes mellitus Hemoglobin A1c 6.6. - Metformin held. renal functions normal. patient has been on this as OP- restart as OP. tolerated this very well as OP- denies any adverse GI symptoms - Continue with insulin sliding scale. Urinary retention- resolved Nursing concern of decreased urine output 05/02. [place] was recently discontinued. - sp mayfield catheter, no retention on bladder scan. Atrial fibrillation - nor ate controlled. Continue to monitor on telemetry. Cardiology increased dose of beta lucas and dose of amiodarone. Diarrhea/abdominal pain - - no further complains DC laxatives. Will start on lactobacillus acidophilus. PPx: Per surgery Discharge Planning cleared for DC May 04, 2017 18:15 Alma Rosa Becker MD May 05, 2017 12:11 Alma Rosa Becker MD May 05, 2017 12:11
[2017-05-05] MEDS ORDERED: GLYB2.5T3 PO (12:25)
[2017-05-05] MEDS ORDERED: glyBURIDE 2.5 MG TAB PO SCH (12:30)
--- NOTE | 2017-05-05 12:34 | HHI.DS ---
Discharge Summary Admission Date Apr 28, 2017 at 18:17 Discharge Date: May 05, 2017 Admitting Diagnosis Non-STEMI, diabetes mellitus, renal insufficiency (1) Non-ST elevation myocardial infarction (NSTEMI) ICD Code: I21.4 Diagnosis: Principal (2) S/P CABG x 4 ICD Code: Z95.1 Diagnosis: Principal (3) Ischemic cardiomyopathy ICD Code: I25.5 Diagnosis: Principal (4) Diabetes mellitus ICD Code: E11.9 Diagnosis: Secondary (5) Chronic kidney disease ICD Code: N18.9 Diagnosis: Secondary Procedures CABG Brief History - From Admission This is a 66-year-old male with a history of diabetes mellitus, who presents from the [facility] with complaints of chest pain. The patient states he's had intermittent chest pain over the last week. He reports it as tightness across his chest radiation to his left arm. He denies any diaphoresis. He does report shortness of breath and nausea with the pain. He states that when he was at the [facility], they gave him nitroglycerin and aspirin. He states that that resolved his discomfort. He has no history of coronary artery disease. He's never had heart issues. He states his overall health is good. His noted to have issues regarding his diabetes. He only takes oral medications for this CBC/BMP: 05/05/17 0545 05/05/17 0545 Significant Findings Laboratory Tests Test 05/03/17 05/04/17 05/04/17 05/05/17 05:45 05:52 15:29 05:45 White Blood Count 18.4 TH/MM3 16.3 TH/MM3 (4.0-11.0) (4.0-11.0) Red Blood Count 3.99 MIL/MM3 3.74 MIL/MM3 3.55 MIL/MM3 (4.50-5.90) (4.50-5.90) (4.50-5.90) Hemoglobin 12.6 GM/DL 12.0 GM/DL 11.4 GM/DL (13.0-17.0) (13.0-17.0) (13.0-17.0) Hematocrit 36.7 % 34.6 % 32.6 % (39.0-51.0) (39.0-51.0) (39.0-51.0) Neutrophils (%) (Auto) 80.7 % 71.8 % (16.0-70.0) (16.0-70.0) Lymphocytes (%) (Auto) 7.9 % (9.0-44.0) Monocytes (%) (Auto) 10.9 % 9.6 % (0.0-8.0) (0.0-8.0) Neutrophils # (Auto) 14.9 TH/MM3 (1.8-7.7) Monocytes # (Auto) 2.0 TH/MM3 (0-0.9) Sodium Level 133 MEQ/L 135 MEQ/L (136-145) (136-145) Blood Urea Nitrogen 29 MG/DL (7-18) 27 MG/DL (7-18) 25 MG/DL (7-18) Creatinine 1.42 MG/DL (0.60-1.30) Estimat Glomerular Filtration 50 ML/MIN (>89) 61 ML/MIN (>89) 65 ML/MIN (>89) Rate Random Glucose 165 MG/DL 168 MG/DL 141 MG/DL (74-106) (74-106) (74-106) Calcium Level 8.1 MG/DL 8.3 MG/DL 7.7 MG/DL (8.5-10.1) (8.5-10.1) (8.5-10.1) Alkaline Phosphatase 36 U/L (45-117) Total Protein 6.1 GM/DL (6.4-8.2) Albumin 2.4 GM/DL (3.4-5.0) Imaging Last Impressions Abdomen X-Ray 05/05/17 0000 Signed Impressions: Service Date/Time: Friday, May 05, 2017 10:50 - CONCLUSION: Mild continued distention of the colon but there are no features to indicate bowel obstruction. Imaging features suggest improved ileus. Overall bowel gas pattern has improved (decreased size of distended bowel) compared to yesterday's examination. Timo Gu MD Chest X-Ray 05/02/17 0500 Signed Impressions: Service Date/Time: Tuesday, May 02, 2017 04:48 - CONCLUSION: 1. Left greater than right basilar atelectasis not significantly changed. 2. Endotracheal tube and nasogastric tube removed. Other lines and tubes remain in place, including a left chest tube. No pneumothorax. Timo Worley MD Lower Extremity Ultrasound 04/29/17 0000 Signed Impressions: Service Date/Time: Saturday, April 29, 2017 20:00 - CONCLUSION: Normal examination. Phil Trejo MD Carotid Artery Ultrasound 04/29/17 0000 Signed Impressions: Service Date/Time: Saturday, April 29, 2017 19:16 - CONCLUSION: 1. Mild plaque in the carotid arteries bilaterally. No hemodynamically significant stenosis. Vertebral artery flow antegrade bilaterally. Phil Trejo MD PE at Discharge awake and alert NAD anicteric sternum- VAC dressing in place lungs no rales or wheezes regular rhythm abdomen soft, nontender, good bowel sounds extremities = trace pretibial edema neuro exam- unremarkable Pt update on day of discharge awake and alert, in DR no complains, no abdominal pain, + flatus. abdominal exam benign voiding well states has been on Metformin in the past- tolerated well patient states has BGM supplies at home Hospital Course 66 years old male ACS - NSTEMI/severe multivessel disease S/p CABG Cardiomyopathy- Echo confirms low EF Cardiac catheterization on 04/30/17v by Dr. her showed multivessel disease. S/p Coronary Artery Bypass Grafting x 4 with Left Internal Mammary Artery (ZAPATA) to Left Anterior Descending (LAD), reverse saphenous vein graft to ramus marginalis , reverse saphenous vein graft to the Obtuse Marginal 1 branch of the Circumflex artery, reverse saphenous vein graft to the Posterior Descending ( RPDA) branch of the Right Coronary Artery (RCA), with bilateral Leg Endoscopic Vein [place]. - cleared for DC - pain control with a bowel regimen. - oxygen and nebs as needed. - rehab efforts. - incentive spirometry. - Continue ASA, BB, plavix Amiodarone and beta lucas started for asymptomatic afib- now in SR - Lisinorpil 2.5 mg po daily ALYSIA on CKD stage III Most likely secondary to hypoperfusion due to NSTEMI. 05/03 Creatinine slightly worsenedn at 1.4. Continue to monitor and trend BUN/ creatinine. Encourage oral intake of IV fluids. 05/04 Creatinine much improved today and ALYSIA resolved. Creatinine down to 1.19. Continue to monitor BUN/Creatinine, avoid nephrotoxins. Diabetes mellitus Hemoglobin A1c 6.6. - Metformin held. renal functions normal. patient has been on this as OP- restart as OP. tolerated this very well as OP- denies any adverse GI symptoms - Continue with insulin sliding scale. Urinary retention- resolved Nursing concern of decreased urine output 05/02. Mayfield was recently discontinued. - sp mayfield catheter, no retention on bladder scan. Atrial fibrillation - nor ate controlled. Continue to monitor on telemetry. Cardiology increased dose of beta lucas and dose of amiodarone. Diarrhea/abdominal pain - - no further complains Pt Condition on Discharge: Stable Discharge Disposition: Disch w/ Home Health Serv Discharge Time: <= 30 minutes Discharge Instructions DIET: Follow Instructions for: Heart Healthy Diet, Diabetic Diet Speech Therapy-Diet Recommends: Regular Activities you can perform: Weight Bearing as Oleg Activities to Avoid: Lifting/Bending, Strenuous Activity Follow up Referrals: Cardiology with Leighton Her MD PCP Follow-up with [facility] with Cece Rizvi New Medications: Amiodarone (Amiodarone) 200 Mg Tab 400 MG PO Q8H 400mg bid x 5 days, then 200mg bid x 5 days, then 200mg daily heart rhythm #60 TAB Aspirin (Aspirin Low Strength) 81 Mg Chew 81 MG PO DAILY Blood Clot Prevention #100 Ref 2 EA Atorvastatin (Atorvastatin) 40 Mg Tab 40 MG PO HS Cholesterol Management #30 Ref 2 TAB Clopidogrel (Plavix) 75 Mg Tab 75 MG PO DAILY Blood Clot Prevention #30 Ref 2 TAB Lisinopril (Lisinopril) 5 Mg Tab 2.5 MG PO DAILY Blood Pressure Management #30 Ref 2 TAB Metoprolol Tartrate (Metoprolol Tartrate) 25 Mg Tab 25 MG PO BID Blood Pressure Management #60 Ref 2 TAB Multiple Vitamins W/ Minerals (Thera M Plus) 1 Tab 1 TAB PO DAILY multi vitamin #30 Ref 2 TAB Oxycodone-Acetaminophen (Oxycodone-Acetaminophen) 5-325 mg Tab 1 TAB PO Q6HR PRN PAIN SCALE 1 TO 5 #40 Ref 0 TAB Continued Medications: Metformin (Metformin) 850 Mg Tab 850 MG PO DAILY With a meal Blood Sugar Management Ref 0 TAB Alma Rosa Becker MD May 05, 2017 12:34
--- NOTE | 2017-05-05 16:09 | EKG ---
Date Performed: 05/05/2017 Time Performed: 11:06:18 PTAGE: 66 years EKG: CONSIDER ACUTE ST ELEVATION MO Sinus rhythm . IV conduction defect Inferior infarct - age undetermined Lateral ST elevation, CONSIDER ACUTE INFAR CT Abnormal ECG PREVIOUS TRACING : 05/03/2017 06.14 Compared to previous tracing, patient has now converted fro m atrial fibrillation to sinus rhythm. ST elevation noted in I and aVL, lead II and V2. Cannot exclud e acute lateral infarction. DOCTOR: Jewel Cartagena Interpretating Date/Time 05/05/2017 16:08:01
--- NOTE | 2017-05-05 19:44 | ECHRPT ---
Indication: CHF CONCLUSIONS Wall thickness is measured at the upper limits of normal. The left ventricular systolic function is moderately to severely reduced with an estimated ejection fraction in the range of 30-35%, there is global left ventricular dysfunction. [id number] mitral valve regurgitation. BP: 119 / 71 HR: 66 Rhythm: Sinus MEASUREMENTS (Male / Female) Normal Values Technical Quality:Good 2D ECHO LV Diastolic Diameter PLAX 4.8 cm 4.2 - 5.9 / 3.9 - 5.3 cm LV Systolic Diameter PLAX 4.1 cm IVS Diastolic Thickness 1.2 cm 0.6 - 1.0 / 0.6 - 0.9 cm LVPW Diastolic Thickness 1.1 cm 0.6 - 1.0 / 0.6 - 0.9 cm LV Relative Wall Thickness 0.5 LV Ejection Fraction MOD 4C 35.1 % LV Cardiac Index MOD 4C 1437.1 cm/minm LV Ejection Fraction 4C AL 36.7 % LV Cardiac Index 4C AL 1543.0 cm/minm FINDINGS LEFT VENTRICLE Wall thickness is measured at the upper limits of normal. The left ventricular systolic function is reduced to a moderate to severe degree with an estimated e jection fraction in the range of 30-35%, there is global left ventricular dysfunction. MITRAL VALVE Hpotw-iu-miiy mitral valve regurgitation. Karina Valera MD, FACC (Electronically Signed) Final Date:05 May 2017 19:43
[2017-05-06] MEDS ORDERED: POTA-163 PO (13:37)
[2017-05-06] MEDS ORDERED: FURO1TAB60 PO (13:37)
--- NOTE | 2017-05-15 11:21 | RSPPFT ---
DATE OF PROCEDURE: 05/04/17 COMMENTS: Spirometry demonstrates an FEV1 of 2.7 at 67% of predicted, FVC of 3.3 at 66%, FEF 25-75 is 74%. Flow volume loops are atypical and may suggest variable intrathoracic airways obstruction. IMPRESSION: 1. Mild to moderate restrictive disease. 2. No significant obstructive disease.
== END 2017-05-05 14:00 | disposition home health service (06) | DRG 234 ==
LOC: NEPC 16:05 → NEDH 18:17 → HCIS 04-29 12:54 → HCVR 04-30 14:34 → HCIN 05-02 12:27 → HCIS 05-05 19:07
PROVIDERS: ADMIT Internal Medicine; ATTEND Internal Medicine
PROC: 4A023N7 Measurement of Cardiac Sampling and Pressure, Left Heart, Percutaneous Approach (ICD-10-PCS; 2017-04-29)
PROC: B2151ZZ Fluoroscopy of Left Heart using Low Osmolar Contrast (ICD-10-PCS; 2017-04-29)
PROC: B2111ZZ Fluoroscopy of Multiple Coronary Arteries using Low Osmolar Contrast (ICD-10-PCS; 2017-04-29)
PROC: 021209W Bypass Coronary Artery, Three Arteries from Aorta with Autologous Venous Tissue, Open Approach (ICD-10-PCS; 2017-05-01)
PROC: 06BP4ZZ Excision of Right Saphenous Vein, Percutaneous Endoscopic Approach (ICD-10-PCS; 2017-05-01)
PROC: 02100Z9 Bypass Coronary Artery, One Artery from Left Internal Mammary, Open Approach (ICD-10-PCS; principal; 2017-05-01 07:02)
DX: I21.4 Non-ST elevation (NSTEMI) myocardial infarction (principal); N17.9 Acute kidney failure, unspecified; I48.91 Unspecified atrial fibrillation; N18.3 Chronic kidney disease, stage 3 (moderate); E78.5 Hyperlipidemia, unspecified; R33.9 Retention of urine, unspecified; I25.10 Atherosclerotic heart disease of native coronary artery without angina pectoris; I25.5 Ischemic cardiomyopathy; R19.7 Diarrhea, unspecified; R10.30 Lower abdominal pain, unspecified; E11.9 Type 2 diabetes mellitus without complications; Z79.84 Long term (current) use of oral hypoglycemic drugs; R00.1 Bradycardia, unspecified
CPT/HCPCS: 36430; 71010; 74000; 76937; 80048; 80053; 80061; 81001; 82550; 82552; 82948; 83036; 83735; 84100; 84439; 84443; 84484; 85025; 85027; 85610; 85730; 86850; 86900; 86901; 86920; 87493; 87641; 93005; 93306; 93308; 93318; 93458; 93880; 93970; 93998; 94002; 94010; 94150; 94640; 94664; 94667; 94668; C1768; C1769; C1893; J0131; J0171; J0282; J0461; J0690; J1250; J1644; J1815; J1817; J2250; J2270; J2405; J2440; J2720; J2765; J3010; J3370; J3475; J3480; J7040; J7050; J7120; P9016; Q9967